=== PATIENT | male | born 1965 | race Two or more races ===

== ENCOUNTER 2021-03-08 17:37 | Inpatient (IN) | payer OTHER ==
[2021-03-08] MEDS ORDERED: DEXAMETHASONE SOD PHOSPHATE 4 MG/1 ML VIAL IVPUSH ONE (18:04)
[2021-03-08] MEDS ORDERED: ACETAMINOPHEN 1000 MG/100 ML VIAL IVPB ONE (18:05)
[2021-03-08] MEDS ORDERED: ACETAMINOPHEN INJECTION 100 ML IVPB ONE (18:38)
[2021-03-08] MEDS ORDERED: DEXAMETHASONE SOD PHOSPHATE 10 MG/1 ML VIAL ONE ×2 (18:38→18:41)
[2021-03-08 20:00] LABS: VENOUS BASE EXCESS 1.1 mmol/L (-2-2); VENOUS O2 SATURATION 49.3 % (70-80); VENOUS PCO2 44.2 mmHg (38-52); VENOUS PH 7.394 (7.310-7.410)
[2021-03-08 20:02] LABS: BASO % 0.3 % (0-2.0); EOS % 0.1 % (0-4.5); HEMATOCRIT 40.9 % (35.4-49); HEMOGLOBIN 14.3 GM/dL (11.7-16.9); LYMPH % 14.5 % (8-40); MCH 30.4 pg (25.7-33.7); MCHC 34.8 g/dl (32.0-35.9); MEAN CELL VOLUME 87.4 fl (80-96); MEAN PLT VOLUME 9.4 fl (7.5-11.1); MONO % 9.4 % (3.8-10.2); NEUT % 75.7 % (42.8-82.8); PLATELET COUNT 250 10^3/uL (134-434); RBC 4.68 M/mm3 (4.00-5.60); WHITE BLOOD COUNT 7.4 K/mm3 (4.0-10.0)
[2021-03-08 20:07] LABS: INR 1.05 (0.83-1.09); PROTHROMBIN TIME (PATIENT) 12.7 SEC (9.7-13.0)
[2021-03-08 20:10] LABS: ACTIVATED PTT 35.4 SECONDS (25.2-36.5)
[2021-03-08 20:20] LABS: CHLORIDE 103 mmol/L (98-107); SODIUM 138 mmol/L (136-145)
[2021-03-08 20:22] LABS: CALCIUM 8.4 mg/dL (8.5-10.1)
[2021-03-08 20:23] LABS: ANION GAP 8 MMOL/L (8-16); BLOOD UREA NITROGEN 29.3 mg/dL (7-18); CO2 26 mmol/L (21-32); GLUCOSE,RANDOM 86 mg/dL (74-106)
[2021-03-08 20:25] LABS: BILIRUBIN,DIRECT 0.4 mg/dL (0.0-0.2)
[2021-03-08 20:26] LABS: CREATININE 1.3 mg/dL (0.55-1.3); SGOT/AST 120 U/L (15-37); SGPT/ALT 159 U/L (13-61)
[2021-03-08 20:27] LABS: BILIRUBIN,TOTAL 1.1 mg/dL (0.2-1); TOT PROT 7.2 g/dl (6.4-8.2)
[2021-03-08 20:29] LABS: ALK PHOS 186 U/L (45-117)
[2021-03-08 20:38] LABS: LDH 675 U/L (87-246)
[2021-03-09] MEDS ORDERED: ACETAMINOPHEN 325 MG TABLET (FP) PO PRN (00:57)
[2021-03-09] MEDS ORDERED: ALBUTEROL SO4 HFA INHALER IH PRN (01:16)
[2021-03-09 07:49] LABS: HEMOGLOBIN 13.4 GM/dL (11.7-16.9); MCH 30.1 pg (25.7-33.7); MCHC 34.4 g/dl (32.0-35.9); MEAN CELL VOLUME 87.4 fl (80-96); MEAN PLT VOLUME 8.8 fl (7.5-11.1); PLATELET COUNT 278 10^3/uL (134-434); RBC 4.46 M/mm3 (4.00-5.60); RDW 13.1 % (11.9-15.9); WHITE BLOOD COUNT 6.7 K/mm3 (4.0-10.0)
[2021-03-09 08:07] LABS: ALBUMIN 2.7 g/dl (3.4-5.0); BLOOD UREA NITROGEN 29.9 mg/dL (7-18); CALCIUM 8.2 mg/dL (8.5-10.1); MAGNESIUM 2.4 mg/dL (1.8-2.4)
[2021-03-09 08:09] LABS: BILIRUBIN,TOTAL 1.1 mg/dL (0.2-1)
[2021-03-09 08:10] LABS: CREATININE 1.1 mg/dL (0.55-1.3); TOT PROT 6.8 g/dl (6.4-8.2)
[2021-03-09 08:11] LABS: PHOSPHOROUS 4.8 mg/dL (2.5-4.9)
[2021-03-09] MEDS ORDERED: REMDESIVIR 200 MG in SODIUM CHLORIDE 250 ML IVPB ONE (10:00)
[2021-03-09] MEDS: DEXAMETHASONE SOD PHOSPHATE 10 MG/1 ML VIAL IVPUSH SCH (10:11)
[2021-03-09] MEDS: ZINC SULFATE 220 MG CAPSULE (FP) PO SCH (10:11)
[2021-03-09] MEDS: PANTOPRAZOLE 40 MG TABLET PO SCH (10:11)
[2021-03-09] MEDS: ENOXAPARIN NA (PORCINE) 40 MG/0.4 ML DISP.SYRIN SQ SCH (10:12)
[2021-03-09] MEDS: CHOLECALCIFEROL (VIT D3) 1,000 UNIT (25 MCG) TABLET PO SCH (10:12)
[2021-03-09] MEDS: ASCORBIC ACID 500 MG TABLET (FP) PO SCH ×2 (10:12→21:59)
[2021-03-10 08:20] LABS: BASO % 0.3 % (0-2.0); HEMATOCRIT 36.5 % (35.4-49); HEMOGLOBIN 12.6 GM/dL (11.7-16.9); LYMPH % 10.8 % (8-40); MCH 30.2 pg (25.7-33.7); MCHC 34.5 g/dl (32.0-35.9); MEAN CELL VOLUME 87.5 fl (80-96); MEAN PLT VOLUME 8.9 fl (7.5-11.1); MONO % 9.9 % (3.8-10.2); PLATELET COUNT 299 10^3/uL (134-434); RBC 4.17 M/mm3 (4.00-5.60); WHITE BLOOD COUNT 13.4 K/mm3 (4.0-10.0)
[2021-03-10 08:44] LABS: BLOOD UREA NITROGEN 34.6 mg/dL (7-18); CALCIUM 8.2 mg/dL (8.5-10.1)
[2021-03-10 08:45] LABS: ALBUMIN 2.6 g/dl (3.4-5.0)
[2021-03-10 08:48] LABS: CREATININE 1.1 mg/dL (0.55-1.3)
[2021-03-10 08:49] LABS: BILIRUBIN,TOTAL 0.9 mg/dL (0.2-1); TOT PROT 6.3 g/dl (6.4-8.2)
[2021-03-10] MEDS ORDERED: PT OWN MED DRAWER 7, Y5N ONE (10:39)
[2021-03-10] MEDS: DEXAMETHASONE SOD PHOSPHATE 10 MG/1 ML VIAL IVPUSH SCH (10:52)
[2021-03-10] MEDS: ASCORBIC ACID 500 MG TABLET (FP) PO SCH ×2 (10:52→21:13)
[2021-03-10] MEDS: ZINC SULFATE 220 MG CAPSULE (FP) PO SCH (10:52)
[2021-03-10] MEDS: CHOLECALCIFEROL (VIT D3) 1,000 UNIT (25 MCG) TABLET PO SCH (10:53)
[2021-03-10] MEDS: ENOXAPARIN NA (PORCINE) 40 MG/0.4 ML DISP.SYRIN SQ SCH (10:53)
[2021-03-10] MEDS: PANTOPRAZOLE 40 MG TABLET PO SCH (10:53)
[2021-03-10] MEDS: REMDESIVIR 100 MG in SODIUM CHLORIDE 250 ML IVPB SCH (10:53)
[2021-03-11 09:27] LABS: HEMATOCRIT 35.9 % (35.4-49); HEMOGLOBIN 12.4 GM/dL (11.7-16.9); MCH 30.2 pg (25.7-33.7); MCHC 34.6 g/dl (32.0-35.9); MEAN CELL VOLUME 87.4 fl (80-96); MEAN PLT VOLUME 8.7 fl (7.5-11.1); PLATELET COUNT 347 10^3/uL (134-434); RDW 12.8 % (11.9-15.9); WHITE BLOOD COUNT 14.3 K/mm3 (4.0-10.0)
[2021-03-11] MEDS: REMDESIVIR 100 MG in SODIUM CHLORIDE 250 ML IVPB SCH (10:05)
[2021-03-11 10:06] LABS: BLOOD UREA NITROGEN 28.7 mg/dL (7-18)
[2021-03-11 10:07] LABS: ALBUMIN 2.6 g/dl (3.4-5.0); CALCIUM 8.2 mg/dL (8.5-10.1); CREATININE 0.9 mg/dL (0.55-1.3); PHOSPHOROUS 2.6 mg/dL (2.5-4.9); TOT PROT 6.4 g/dl (6.4-8.2)
[2021-03-11 10:08] LABS: MAGNESIUM 2.5 mg/dL (1.8-2.4)
[2021-03-11] MEDS ORDERED: PT OWN MED DRAWER 7, Y5N ONE ×2 (10:09→11:38)
[2021-03-11] MEDS: ZINC SULFATE 220 MG CAPSULE (FP) PO SCH (10:13)
[2021-03-11] MEDS: ASCORBIC ACID 500 MG TABLET (FP) PO SCH ×2 (10:13→21:45)
[2021-03-11] MEDS: PANTOPRAZOLE 40 MG TABLET PO SCH (10:13)
[2021-03-11] MEDS: CHOLECALCIFEROL (VIT D3) 1,000 UNIT (25 MCG) TABLET PO SCH (10:13)
[2021-03-11] MEDS: DEXAMETHASONE SOD PHOSPHATE 10 MG/1 ML VIAL IVPUSH SCH (10:13)
[2021-03-11] MEDS: guaiFENesin 200 MG/10 ML 10 ML UNIT-DOSE CUPS PO PRN ×2 (10:13→21:45)
[2021-03-11] MEDS: ENOXAPARIN NA (PORCINE) 40 MG/0.4 ML DISP.SYRIN SQ SCH (10:13)
[2021-03-11 10:17] LABS: ERYTHROCYTE SEDIMENTATION RATE 66 mm/hr (0-20)
[2021-03-11] MEDS: ALBUTEROL SO4 HFA INHALER IH SCH ×3 (11:42→20:22)
[2021-03-11] MEDS: BUDESONIDE/FORMETEROL FUMARATE 160/4.5 mcg INHALER IH SCH ×2 (11:42→21:45)
[2021-03-12] MEDS: ALBUTEROL SO4 HFA INHALER IH SCH ×4 (08:00→20:32)
[2021-03-12 09:51] LABS: HEMATOCRIT 35.5 % (35.4-49); HEMOGLOBIN 12.1 GM/dL (11.7-16.9); MCH 29.5 pg (25.7-33.7); MCHC 34.2 g/dl (32.0-35.9); MEAN CELL VOLUME 86.4 fl (80-96); MEAN PLT VOLUME 8.7 fl (7.5-11.1); PLATELET COUNT 356 10^3/uL (134-434); WHITE BLOOD COUNT 16.8 K/mm3 (4.0-10.0)
[2021-03-12 10:12] LABS: BLOOD UREA NITROGEN 24.6 mg/dL (7-18)
[2021-03-12 10:13] LABS: ALBUMIN 2.7 g/dl (3.4-5.0); CALCIUM 8.2 mg/dL (8.5-10.1); MAGNESIUM 2.1 mg/dL (1.8-2.4)
[2021-03-12 10:16] LABS: CREATININE 1.1 mg/dL (0.55-1.3); PHOSPHOROUS 2.3 mg/dL (2.5-4.9)
[2021-03-12 10:17] LABS: BILIRUBIN,TOTAL 1.4 mg/dL (0.2-1); TOT PROT 6.4 g/dl (6.4-8.2)
[2021-03-12] MEDS ORDERED: PT OWN MED DRAWER 7, Y5N ONE (10:22)
[2021-03-12] MEDS: ZINC SULFATE 220 MG CAPSULE (FP) PO SCH (10:26)
[2021-03-12] MEDS: PANTOPRAZOLE 40 MG TABLET PO SCH (10:26)
[2021-03-12] MEDS: ASCORBIC ACID 500 MG TABLET (FP) PO SCH ×3 (10:27→22:22)
[2021-03-12] MEDS: CHOLECALCIFEROL (VIT D3) 1,000 UNIT (25 MCG) TABLET PO SCH (10:27)
[2021-03-12] MEDS: DEXAMETHASONE SOD PHOSPHATE 10 MG/1 ML VIAL IVPUSH SCH (10:28)
[2021-03-12] MEDS: BUDESONIDE/FORMETEROL FUMARATE 160/4.5 mcg INHALER IH SCH ×3 (10:28→22:22)
[2021-03-12] MEDS: REMDESIVIR 100 MG in SODIUM CHLORIDE 250 ML IVPB SCH (10:28)
[2021-03-12] MEDS: ENOXAPARIN NA (PORCINE) 40 MG/0.4 ML DISP.SYRIN SQ SCH (10:30)
[2021-03-12] MEDS ORDERED: BARICITINIB 2 MG TABLET PO SCH (11:00)
[2021-03-12] MEDS ORDERED: ACETAMINOPHEN 1000 MG/100 ML VIAL IVPB PRN (11:21)
[2021-03-12] MEDS ORDERED: ACETAMINOPHEN 325 MG TABLET (FP) PO PRN (21:57)
[2021-03-13 07:25] LABS: HEMATOCRIT 39.8 % (35.4-49); HEMOGLOBIN 13.3 GM/dL (11.7-16.9); MCH 29.7 pg (25.7-33.7); MCHC 33.3 g/dl (32.0-35.9); MEAN CELL VOLUME 88.9 fl (80-96); MEAN PLT VOLUME 9.6 fl (7.5-11.1); PLATELET COUNT 394 10^3/uL (134-434); RBC 4.47 M/mm3 (4.00-5.60); RDW 13.2 % (11.9-15.9); WHITE BLOOD COUNT 19.4 K/mm3 (4.0-10.0)
[2021-03-13 08:09] LABS: CALCIUM 8.6 mg/dL (8.5-10.1)
[2021-03-13 08:10] LABS: ALBUMIN 2.8 g/dl (3.4-5.0); MAGNESIUM 2.4 mg/dL (1.8-2.4)
[2021-03-13 08:13] LABS: PHOSPHOROUS 3.2 mg/dL (2.5-4.9)
[2021-03-13 08:14] LABS: BILIRUBIN,TOTAL 1.2 mg/dL (0.2-1)
[2021-03-13 08:15] LABS: TOT PROT 6.9 g/dl (6.4-8.2)
[2021-03-13] MEDS ORDERED: PT OWN MED DRAWER 7, Y5N ONE ×2 (09:08→09:57)
[2021-03-13] MEDS: ALBUTEROL SO4 HFA INHALER IH SCH ×4 (09:11→20:21)
[2021-03-13] MEDS ORDERED: ENOXAPARIN NA (PORCINE) 40 MG/0.4 ML DISP.SYRIN SQ SCH (10:00)
[2021-03-13] MEDS ORDERED: REMDESIVIR 100 MG in SODIUM CHLORIDE 250 ML IVPB SCH (10:00)
[2021-03-13] MEDS: DEXAMETHASONE SOD PHOSPHATE 10 MG/1 ML VIAL IVPUSH SCH (10:12)
[2021-03-13] MEDS: ASCORBIC ACID 500 MG TABLET (FP) PO SCH ×2 (10:13→23:13)
[2021-03-13] MEDS: BARICITINIB 2 MG TABLET PO SCH (10:13)
[2021-03-13] MEDS: PANTOPRAZOLE 40 MG TABLET PO SCH (10:13)
[2021-03-13] MEDS: ZINC SULFATE 220 MG CAPSULE (FP) PO SCH (10:13)
[2021-03-13] MEDS: CHOLECALCIFEROL (VIT D3) 1,000 UNIT (25 MCG) TABLET PO SCH (10:13)
[2021-03-13] MEDS: BUDESONIDE/FORMETEROL FUMARATE 160/4.5 mcg INHALER IH SCH ×2 (10:35→23:13)
[2021-03-13] MEDS: ENOXAPARIN NA (PORCINE) 40 MG/0.4 ML DISP.SYRIN SQ SCH (23:15)
[2021-03-14 07:38] LABS: HEMATOCRIT 35.7 % (35.4-49); HEMOGLOBIN 12.1 GM/dL (11.7-16.9); MCH 29.5 pg (25.7-33.7); MCHC 33.9 g/dl (32.0-35.9); MEAN CELL VOLUME 87.2 fl (80-96); MEAN PLT VOLUME 8.9 fl (7.5-11.1); PLATELET COUNT 408 10^3/uL (134-434); RBC 4.09 M/mm3 (4.00-5.60); RDW 13.1 % (11.9-15.9)
[2021-03-14] MEDS: ALBUTEROL SO4 HFA INHALER IH SCH ×4 (07:42→20:00)
[2021-03-14 07:44] LABS: CALCIUM 8.8 mg/dL (8.5-10.1)
[2021-03-14 07:47] LABS: ALBUMIN 2.5 g/dl (3.4-5.0); MAGNESIUM 2.5 mg/dL (1.8-2.4)
[2021-03-14 07:51] LABS: BILIRUBIN,TOTAL 1.2 mg/dL (0.2-1); PHOSPHOROUS 3.4 mg/dL (2.5-4.9)
[2021-03-14 07:52] LABS: TOT PROT 6.4 g/dl (6.4-8.2)
[2021-03-14] MEDS: DEXAMETHASONE SOD PHOSPHATE 10 MG/1 ML VIAL IVPUSH SCH (10:27)
[2021-03-14] MEDS: BUDESONIDE/FORMETEROL FUMARATE 160/4.5 mcg INHALER IH SCH ×2 (10:29→22:07)
[2021-03-14] MEDS: ENOXAPARIN NA (PORCINE) 40 MG/0.4 ML DISP.SYRIN SQ SCH ×2 (10:29→22:01)
[2021-03-14] MEDS: ASCORBIC ACID 500 MG TABLET (FP) PO SCH ×2 (10:29→22:01)
[2021-03-14] MEDS: CHOLECALCIFEROL (VIT D3) 1,000 UNIT (25 MCG) TABLET PO SCH (10:29)
[2021-03-14] MEDS: BARICITINIB 2 MG TABLET PO SCH (10:29)
[2021-03-14] MEDS: PANTOPRAZOLE 40 MG TABLET PO SCH (10:29)
[2021-03-14] MEDS: ZINC SULFATE 220 MG CAPSULE (FP) PO SCH (10:29)
[2021-03-14 11:44] LABS: HIV INTERPRETATION NEGATIVE (NEGATIVE)
[2021-03-14] MEDS: guaiFENesin 200 MG/10 ML 10 ML UNIT-DOSE CUPS PO PRN (22:01)
[2021-03-15 07:55] LABS: BASO % 0.4 % (0-2.0); EOS % 0.3 % (0-4.5); HEMATOCRIT 34.3 % (35.4-49); HEMOGLOBIN 11.5 GM/dL (11.7-16.9); LYMPH % 6.9 % (8-40); MCH 29.6 pg (25.7-33.7); MCHC 33.5 g/dl (32.0-35.9); MEAN CELL VOLUME 88.3 fl (80-96); MEAN PLT VOLUME 9.5 fl (7.5-11.1); MONO % 3.8 % (3.8-10.2); NEUT % 88.6 % (42.8-82.8); PLATELET COUNT 448 10^3/uL (134-434); RBC 3.88 M/mm3 (4.00-5.60); WHITE BLOOD COUNT 14.2 K/mm3 (4.0-10.0)
[2021-03-15 08:21] LABS: ALBUMIN 2.2 g/dl (3.4-5.0); BLOOD UREA NITROGEN 32.2 mg/dL (7-18); CALCIUM 8.2 mg/dL (8.5-10.1); MAGNESIUM 2.5 mg/dL (1.8-2.4)
[2021-03-15 08:23] LABS: BILIRUBIN,TOTAL 0.9 mg/dL (0.2-1); TOT PROT 5.9 g/dl (6.4-8.2)
[2021-03-15 09:04] LABS: ERYTHROCYTE SEDIMENTATION RATE 82 mm/hr (0-20)
[2021-03-15] MEDS ORDERED: PT OWN MED DRAWER 7, Y5N ONE (09:55)
[2021-03-15] MEDS: PANTOPRAZOLE 40 MG TABLET PO SCH (09:59)
[2021-03-15] MEDS: ZINC SULFATE 220 MG CAPSULE (FP) PO SCH (09:59)
[2021-03-15] MEDS: CHOLECALCIFEROL (VIT D3) 1,000 UNIT (25 MCG) TABLET PO SCH (09:59)
[2021-03-15] MEDS: ASCORBIC ACID 500 MG TABLET (FP) PO SCH ×2 (09:59→21:46)
[2021-03-15] MEDS: ENOXAPARIN NA (PORCINE) 40 MG/0.4 ML DISP.SYRIN SQ SCH ×2 (10:00→21:46)
[2021-03-15] MEDS: ALBUTEROL SO4 HFA INHALER IH SCH ×4 (10:00→20:20)
[2021-03-15] MEDS: DEXAMETHASONE SOD PHOSPHATE 10 MG/1 ML VIAL IVPUSH SCH (10:00)
[2021-03-15] MEDS: BARICITINIB 2 MG TABLET PO SCH (10:00)
[2021-03-15] MEDS: BUDESONIDE/FORMETEROL FUMARATE 160/4.5 mcg INHALER IH SCH ×2 (10:01→21:46)
[2021-03-16 07:42] LABS: EOS % 0.3 % (0-4.5); HEMATOCRIT 31.6 % (35.4-49); HEMOGLOBIN 10.9 GM/dL (11.7-16.9); LYMPH % 8.4 % (8-40); MCH 30.3 pg (25.7-33.7); MCHC 34.6 g/dl (32.0-35.9); MEAN CELL VOLUME 87.7 fl (80-96); MEAN PLT VOLUME 9.3 fl (7.5-11.1); MONO % 4.7 % (3.8-10.2); NEUT % 85.6 % (42.8-82.8); PLATELET COUNT 449 10^3/uL (134-434); RDW 13.3 % (11.9-15.9); WHITE BLOOD COUNT 13.9 K/mm3 (4.0-10.0)
[2021-03-16 07:58] LABS: ALBUMIN 2.3 g/dl (3.4-5.0); BLOOD UREA NITROGEN 29.3 mg/dL (7-18); CALCIUM 8.4 mg/dL (8.5-10.1); MAGNESIUM 2.4 mg/dL (1.8-2.4)
[2021-03-16 08:02] LABS: CREATININE 0.9 mg/dL (0.55-1.3); PHOSPHOROUS 3.6 mg/dL (2.5-4.9)
[2021-03-16 08:03] LABS: BILIRUBIN,TOTAL 0.6 mg/dL (0.2-1); TOT PROT 5.9 g/dl (6.4-8.2)
[2021-03-16] MEDS: ALBUTEROL SO4 HFA INHALER IH SCH ×4 (08:40→20:00)
[2021-03-16] MEDS ORDERED: PT OWN MED DRAWER 7, Y5N ONE (09:31)
[2021-03-16 09:42] LABS: ERYTHROCYTE SEDIMENTATION RATE 72 mm/hr (0-20)
[2021-03-16] MEDS: BARICITINIB 2 MG TABLET PO SCH (09:46)
[2021-03-16] MEDS: MULTIVITAMINS (DAILY MVI) TABLET (FP) PO SCH (09:47)
[2021-03-16] MEDS: PANTOPRAZOLE 40 MG TABLET PO SCH (09:47)
[2021-03-16] MEDS: BUDESONIDE/FORMETEROL FUMARATE 160/4.5 mcg INHALER IH SCH ×2 (09:47→22:23)
[2021-03-16] MEDS: ZINC SULFATE 220 MG CAPSULE (FP) PO SCH (09:47)
[2021-03-16] MEDS: DEXAMETHASONE SOD PHOSPHATE 10 MG/1 ML VIAL IVPUSH SCH (09:47)
[2021-03-16] MEDS: ENOXAPARIN NA (PORCINE) 40 MG/0.4 ML DISP.SYRIN SQ SCH ×2 (09:47→22:09)
[2021-03-16] MEDS: ASCORBIC ACID 500 MG TABLET (FP) PO SCH ×2 (09:47→22:09)
[2021-03-16] MEDS: CHOLECALCIFEROL (VIT D3) 1,000 UNIT (25 MCG) TABLET PO SCH (09:47)
[2021-03-17 08:07] LABS: BASO % 0.2 % (0-2.0); EOS % 0.3 % (0-4.5); HEMATOCRIT 32.1 % (35.4-49); HEMOGLOBIN 10.8 GM/dL (11.7-16.9); LYMPH % 8.1 % (8-40); MCH 29.7 pg (25.7-33.7); MCHC 33.7 g/dl (32.0-35.9); MEAN CELL VOLUME 88.1 fl (80-96); MEAN PLT VOLUME 9.2 fl (7.5-11.1); MONO % 5.2 % (3.8-10.2); NEUT % 86.2 % (42.8-82.8); PLATELET COUNT 492 10^3/uL (134-434); RBC 3.65 M/mm3 (4.00-5.60); RDW 12.9 % (11.9-15.9); WHITE BLOOD COUNT 16.2 K/mm3 (4.0-10.0)
[2021-03-17 08:29] LABS: ALBUMIN 2.2 g/dl (3.4-5.0); BLOOD UREA NITROGEN 24.7 mg/dL (7-18); CALCIUM 8.3 mg/dL (8.5-10.1); MAGNESIUM 2.5 mg/dL (1.8-2.4)
[2021-03-17 08:30] LABS: BILIRUBIN,TOTAL 0.7 mg/dL (0.2-1)
[2021-03-17 08:32] LABS: CREATININE 0.9 mg/dL (0.55-1.3)
[2021-03-17 08:33] LABS: PHOSPHOROUS 3.2 mg/dL (2.5-4.9)
[2021-03-17] MEDS: ALBUTEROL SO4 HFA INHALER IH SCH ×4 (08:35→20:00)
[2021-03-17] MEDS: BARICITINIB 2 MG TABLET PO SCH (10:12)
[2021-03-17] MEDS: CHOLECALCIFEROL (VIT D3) 1,000 UNIT (25 MCG) TABLET PO SCH (10:13)
[2021-03-17] MEDS: MULTIVITAMINS (DAILY MVI) TABLET (FP) PO SCH (10:13)
[2021-03-17] MEDS: ASCORBIC ACID 500 MG TABLET (FP) PO SCH ×2 (10:13→22:21)
[2021-03-17] MEDS: ZINC SULFATE 220 MG CAPSULE (FP) PO SCH (10:13)
[2021-03-17] MEDS: ENOXAPARIN NA (PORCINE) 40 MG/0.4 ML DISP.SYRIN SQ SCH ×2 (10:13→22:21)
[2021-03-17] MEDS: DEXAMETHASONE SOD PHOSPHATE 10 MG/1 ML VIAL IVPUSH SCH (10:13)
[2021-03-17] MEDS: PANTOPRAZOLE 40 MG TABLET PO SCH (10:14)
[2021-03-17] MEDS: BUDESONIDE/FORMETEROL FUMARATE 160/4.5 mcg INHALER IH SCH ×2 (10:14→22:32)
[2021-03-18] MEDS: ALBUTEROL SO4 HFA INHALER IH SCH ×4 (09:42→20:00)
[2021-03-18] MEDS ORDERED: PT OWN MED DRAWER 7, Y5N ONE (09:46)
[2021-03-18] MEDS: DEXAMETHASONE SOD PHOSPHATE 10 MG/1 ML VIAL IVPUSH SCH (09:59)
[2021-03-18] MEDS: ENOXAPARIN NA (PORCINE) 40 MG/0.4 ML DISP.SYRIN SQ SCH ×2 (09:59→21:37)
[2021-03-18] MEDS: BARICITINIB 2 MG TABLET PO SCH (09:59)
[2021-03-18] MEDS: PANTOPRAZOLE 40 MG TABLET PO SCH (10:00)
[2021-03-18] MEDS: BUDESONIDE/FORMETEROL FUMARATE 160/4.5 mcg INHALER IH SCH ×2 (10:00→21:38)
[2021-03-18] MEDS: ASCORBIC ACID 500 MG TABLET (FP) PO SCH ×2 (10:00→21:37)
[2021-03-18] MEDS: CHOLECALCIFEROL (VIT D3) 1,000 UNIT (25 MCG) TABLET PO SCH (10:00)
[2021-03-18] MEDS: ZINC SULFATE 220 MG CAPSULE (FP) PO SCH (10:00)
[2021-03-18] MEDS: MULTIVITAMINS (DAILY MVI) TABLET (FP) PO SCH (10:00)
[2021-03-18] MEDS: guaiFENesin 200 MG/10 ML 10 ML UNIT-DOSE CUPS PO PRN (21:52)
[2021-03-19 08:33] LABS: HEMATOCRIT 35.3 % (35.4-49); HEMOGLOBIN 11.7 GM/dL (11.7-16.9); MCH 29.3 pg (25.7-33.7); MCHC 33.1 g/dl (32.0-35.9); MEAN CELL VOLUME 88.4 fl (80-96); MEAN PLT VOLUME 9.1 fl (7.5-11.1); PLATELET COUNT 444 10^3/uL (134-434); RBC 3.99 M/mm3 (4.00-5.60); WHITE BLOOD COUNT 22.5 K/mm3 (4.0-10.0)
[2021-03-19 08:53] LABS: ALBUMIN 2.4 g/dl (3.4-5.0); BLOOD UREA NITROGEN 23.3 mg/dL (7-18); CALCIUM 8.9 mg/dL (8.5-10.1); MAGNESIUM 2.5 mg/dL (1.8-2.4)
[2021-03-19 08:56] LABS: CREATININE 0.9 mg/dL (0.55-1.3); PHOSPHOROUS 3.1 mg/dL (2.5-4.9)
[2021-03-19 08:58] LABS: BILIRUBIN,TOTAL 0.9 mg/dL (0.2-1); TOT PROT 6.4 g/dl (6.4-8.2)
[2021-03-19] MEDS: ALBUTEROL SO4 HFA INHALER IH SCH ×4 (09:03→20:00)
[2021-03-19] MEDS ORDERED: PT OWN MED DRAWER 7, Y5N ONE (11:00)
[2021-03-19] MEDS: BARICITINIB 2 MG TABLET PO SCH (11:11)
[2021-03-19] MEDS: PANTOPRAZOLE 40 MG TABLET PO SCH (11:12)
[2021-03-19] MEDS: DEXAMETHASONE SOD PHOSPHATE 10 MG/1 ML VIAL IVPUSH SCH (11:12)
[2021-03-19] MEDS: MULTIVITAMINS (DAILY MVI) TABLET (FP) PO SCH (11:12)
[2021-03-19] MEDS: CHOLECALCIFEROL (VIT D3) 1,000 UNIT (25 MCG) TABLET PO SCH (11:12)
[2021-03-19] MEDS: ASCORBIC ACID 500 MG TABLET (FP) PO SCH ×2 (11:12→21:38)
[2021-03-19] MEDS: ZINC SULFATE 220 MG CAPSULE (FP) PO SCH (11:12)
[2021-03-19] MEDS: ENOXAPARIN NA (PORCINE) 40 MG/0.4 ML DISP.SYRIN SQ SCH ×2 (11:12→21:37)
[2021-03-19] MEDS: BUDESONIDE/FORMETEROL FUMARATE 160/4.5 mcg INHALER IH SCH ×2 (11:13→21:38)
[2021-03-19 11:43] LABS: ANISOCYTOSIS 0; MACROCYTOSIS 0; PLATELET ESTIMATE NORMAL
[2021-03-20 08:04] LABS: MCH 29.4 pg (25.7-33.7); MCHC 33.5 g/dl (32.0-35.9); PLATELET COUNT 412 10^3/uL (134-434); RBC 3.75 M/mm3 (4.00-5.60); RDW 13.2 % (11.9-15.9); WHITE BLOOD COUNT 19.8 K/mm3 (4.0-10.0)
[2021-03-20 08:45] LABS: CALCIUM 8.9 mg/dL (8.5-10.1)
[2021-03-20 08:46] LABS: ALBUMIN 2.3 g/dl (3.4-5.0); BLOOD UREA NITROGEN 24.7 mg/dL (7-18)
[2021-03-20 08:47] LABS: BILIRUBIN,TOTAL 0.8 mg/dL (0.2-1); MAGNESIUM 2.3 mg/dL (1.8-2.4)
[2021-03-20 08:49] LABS: CREATININE 0.9 mg/dL (0.55-1.3); TOT PROT 6.3 g/dl (6.4-8.2)
[2021-03-20 08:51] LABS: PHOSPHOROUS 3.3 mg/dL (2.5-4.9)
[2021-03-20] MEDS: DEXAMETHASONE SOD PHOSPHATE 10 MG/1 ML VIAL IVPUSH SCH (09:15)
[2021-03-20] MEDS: PANTOPRAZOLE 40 MG TABLET PO SCH (09:16)
[2021-03-20] MEDS: ZINC SULFATE 220 MG CAPSULE (FP) PO SCH (09:16)
[2021-03-20] MEDS: MULTIVITAMINS (DAILY MVI) TABLET (FP) PO SCH (09:16)
[2021-03-20] MEDS: CHOLECALCIFEROL (VIT D3) 1,000 UNIT (25 MCG) TABLET PO SCH (09:16)
[2021-03-20] MEDS: ENOXAPARIN NA (PORCINE) 40 MG/0.4 ML DISP.SYRIN SQ SCH ×2 (09:16→22:08)
[2021-03-20] MEDS: ASCORBIC ACID 500 MG TABLET (FP) PO SCH ×2 (09:16→22:08)
[2021-03-20] MEDS: BUDESONIDE/FORMETEROL FUMARATE 160/4.5 mcg INHALER IH SCH ×2 (09:17→22:23)
[2021-03-20] MEDS: BARICITINIB 2 MG TABLET PO SCH (09:21)
[2021-03-20] MEDS: ALBUTEROL SO4 HFA INHALER IH SCH ×4 (09:21→21:00)
[2021-03-20 09:36] LABS: ANISOCYTOSIS 2+; MACROCYTOSIS 0; PLATELET ESTIMATE NORMAL
[2021-03-21] MEDS: PROPOFOL 1,000,000 MCG/100 ML VIAL IVPB SCH ×3 (05:50→17:15)
[2021-03-21] MEDS: FENTANYL NS IVPB 500 MCG/100 ML BAG IVPB SCH ×5 (05:50→21:42)
[2021-03-21] MEDS ORDERED: MIDAZOLAM IN 0.9 % SOD.CHLORID 1 MG/1 ML PLAST..BAG ONE (06:19)
[2021-03-21] MEDS ORDERED: ACETAMINOPHEN INJECTION 100 ML IVPB ONE (06:23)
[2021-03-21] MEDS ORDERED: ACETAMINOPHEN 1000 MG/100 ML VIAL IVPB ONE (06:25)
[2021-03-21] MEDS ORDERED: VECURONIUM BROMIDE 20 MG/20 ML VIAL ONE (06:33)
[2021-03-21] MEDS ORDERED: ROCURONIUM BROMIDE 100 MG/10 ML VIAL IV ONE (06:33)
[2021-03-21] MEDS ORDERED: ROCURONIUM BROMIDE 50 MG/5 ML VIAL IVPUSH ONE (06:33)
[2021-03-21] MEDS ORDERED: ROCURONIUM BROMIDE 50 MG/5 ML VIAL IV ONE (06:33)
[2021-03-21] MEDS ORDERED: ROCURONIUM BROMIDE 100 MG/10 ML VIAL ONE (06:35)
[2021-03-21] MEDS: MIDAZOLAM IN 0.9 % SOD.CHLORID 100 MG/100 ML PLAST..BAG IVPB SCH ×2 (06:41→17:14)
[2021-03-21] MEDS ORDERED: VECURONIUM BROMIDE 100 MG/100 ML BAG IVPB SCH (06:45)
[2021-03-21] MEDS ORDERED: dilTIAZem HCL 50 MG/10 ML - 10 ML VIAL IVPUSH ONE ×2 (06:54→08:17)
[2021-03-21 07:00] LABS: BASO % 0.7 % (0-2.0); EOS % 0.4 % (0-4.5); HEMATOCRIT 36.3 % (35.4-49); HEMOGLOBIN 11.9 GM/dL (11.7-16.9); LYMPH % 8.3 % (8-40); MCH 29.2 pg (25.7-33.7); MCHC 32.8 g/dl (32.0-35.9); MEAN CELL VOLUME 88.9 fl (80-96); MEAN PLT VOLUME 9.3 fl (7.5-11.1); MONO % 4.3 % (3.8-10.2); NEUT % 86.3 % (42.8-82.8); PLATELET COUNT 535 10^3/uL (134-434); RBC 4.09 M/mm3 (4.00-5.60); RDW 13.6 % (11.9-15.9)
[2021-03-21 07:05] LABS: WHITE BLOOD COUNT 33.3 K/mm3 (4.0-10.0)
[2021-03-21 07:28] LABS: ALBUMIN 2.6 g/dl (3.4-5.0)
[2021-03-21 07:30] LABS: BLOOD UREA NITROGEN 25.2 mg/dL (7-18); CREATININE 0.9 mg/dL (0.55-1.3)
[2021-03-21 07:31] LABS: CALCIUM 8.6 mg/dL (8.5-10.1); PHOSPHOROUS 3.9 mg/dL (2.5-4.9)
[2021-03-21 07:32] LABS: MAGNESIUM 2.2 mg/dL (1.8-2.4); TOT PROT 6.9 g/dl (6.4-8.2)
[2021-03-21 08:16] LABS: ARTERIAL BLD GAS O2 SATURATION 97.3 % (95-98); ARTERIAL BLOOD GAS BASE EXCESS -3.5 mmol/L (-2-2); ARTERIAL BLOOD GAS PO2 130.1 mmHg (80-100)
[2021-03-21 08:19] LABS: ALLENS TEST POSITIVE; ARTERIAL BLOOD GAS pH 7.116 (7.350-7.450)
[2021-03-21 08:20] LABS: VENT RATE 16
[2021-03-21] MEDS: LACTATED RINGERS SOLUTION 1,000 ML/1,000 ML INFUS.BAG IV SCH ×2 (09:15→22:00)
[2021-03-21 09:37] LABS: ANISOCYTOSIS 0; MACROCYTOSIS 0; PLATELET ESTIMATE INCREASED
[2021-03-21] MEDS ORDERED: VASOPRESSIN 40 UNITS/100 ML BAG ONE (09:51)
[2021-03-21] MEDS ORDERED: PT OWN MED DRAWER 7, Y5N ONE ×2 (10:04→15:13)
[2021-03-21] MEDS: DEXAMETHASONE SOD PHOSPHATE 10 MG/1 ML VIAL IVPUSH SCH (10:08)
[2021-03-21] MEDS: PANTOPRAZOLE SODIUM 40 MG VIAL IVPUSH SCH (10:08)
[2021-03-21] MEDS: ENOXAPARIN NA (PORCINE) 40 MG/0.4 ML DISP.SYRIN SQ SCH ×2 (10:08→21:42)
[2021-03-21] MEDS: BUDESONIDE/FORMETEROL FUMARATE 160/4.5 mcg INHALER IH SCH (10:10)
[2021-03-21] MEDS: VECURONIUM BROMIDE 100 MG/100 ML BAG IVPB SCH ×2 (10:15→11:26)
[2021-03-21] MEDS ORDERED: LACTATED RINGERS SOLUTION 1,000 ML/1,000 ML INFUS.BAG IV STA (10:29)
[2021-03-21] MEDS ORDERED: VASOPRESSIN 40 UNITS/100 ML BAG IV SCH (10:30)
[2021-03-21] MEDS: ZINC SULFATE 220 MG CAPSULE (FP) PO SCH (11:03)
[2021-03-21] MEDS: ASCORBIC ACID 500 MG TABLET (FP) PO SCH (11:03)
[2021-03-21] MEDS: CHOLECALCIFEROL (VIT D3) 1,000 UNIT (25 MCG) TABLET PO SCH (11:03)
[2021-03-21] MEDS: MULTIVITAMINS (DAILY MVI) TABLET (FP) PO SCH (11:03)
[2021-03-21] MEDS: ALBUTEROL SO4 HFA INHALER IH SCH ×2 (11:27→15:15)
[2021-03-21] MEDS: MUPIROCIN 2% TOPICAL OINTMENT FOR DECOLONIZATION NS SCH ×2 (12:00→21:42)
[2021-03-21] MEDS ORDERED: PIPERACILLIN/TAZOBACTAM 4.5 GM VIAL IVPB ONE ×3 (12:45→19:49)
[2021-03-21] MEDS ORDERED: DEXTROSE 5%-WATER 100 ML IVPB ONE ×3 (12:45→19:49)
[2021-03-21 12:50] LABS: ARTERIAL BLD GAS O2 SATURATION 94.4 % (95-98); ARTERIAL BLOOD GAS PO2 86.2 mmHg (80-100); ARTERIAL BLOOD GAS pH 7.226 (7.350-7.450)
[2021-03-21] MEDS: PIPERACILLIN/TAZOB 4.5 GM 4.5 GM in DEXTROSE 5%-WATER 100 ML IVPB SCH ×2 (12:50→17:14)
[2021-03-21 12:53] LABS: ALLENS TEST POSITIVE; VENT RATE 26
[2021-03-21] MEDS: VANCOMYCIN/WATER BAGS 1,250 MG/250 ML BAG IVPB SCH (13:29)
[2021-03-21] MEDS: NOREPINEPHRINE D5W PREMIX 16,000 MCG/500 ML BAG IVPB SCH (15:08)
[2021-03-21] MEDS: CHLORHEXIDINE GLUCONATE 4% CLEANSER FOR DECOLONIZATION TP SCH (21:42)
[2021-03-22] MEDS: FENTANYL NS IVPB 500 MCG/100 ML BAG IVPB SCH ×3 (01:07→21:06)
[2021-03-22] MEDS: VANCOMYCIN/WATER BAGS 1,250 MG/250 ML BAG IVPB SCH ×2 (01:07→13:44)
[2021-03-22] MEDS: PIPERACILLIN/TAZOB 4.5 GM 4.5 GM in DEXTROSE 5%-WATER 100 ML IVPB SCH ×3 (01:13→17:18)
[2021-03-22] MEDS ORDERED: fentaNYL CITRATE 250 MCG/5 ML VIAL ONE (06:08)
[2021-03-22] MEDS: PROPOFOL 1,000,000 MCG/100 ML VIAL IVPB SCH ×2 (06:34→20:46)
[2021-03-22] MEDS: MIDAZOLAM IN 0.9 % SOD.CHLORID 100 MG/100 ML PLAST..BAG IVPB SCH ×2 (06:34→21:40)
[2021-03-22 09:34] LABS: CALCIUM 8.7 mg/dL (8.5-10.1)
[2021-03-22 09:35] LABS: BLOOD UREA NITROGEN 21.8 mg/dL (7-18); MAGNESIUM 2.4 mg/dL (1.8-2.4)
[2021-03-22] MEDS ORDERED: PT OWN MED DRAWER 7, Y5N ONE ×2 (09:37→12:09)
[2021-03-22] MEDS ORDERED: PIPERACILLIN/TAZOBACTAM 4.5 GM VIAL IVPB ONE ×2 (09:37→16:55)
[2021-03-22] MEDS ORDERED: DEXTROSE 5%-WATER 100 ML IVPB ONE ×2 (09:37→16:55)
[2021-03-22 09:38] LABS: CREATININE 0.9 mg/dL (0.55-1.3); PHOSPHOROUS 4.8 mg/dL (2.5-4.9)
[2021-03-22 09:39] LABS: BILIRUBIN,TOTAL 0.5 mg/dL (0.2-1); TOT PROT 5.2 g/dl (6.4-8.2)
[2021-03-22 09:42] LABS: ALBUMIN 1.8 g/dl (3.4-5.0)
[2021-03-22] MEDS: LACTATED RINGERS SOLUTION 1,000 ML/1,000 ML INFUS.BAG IV SCH (09:43)
[2021-03-22] MEDS: ENOXAPARIN NA (PORCINE) 40 MG/0.4 ML DISP.SYRIN SQ SCH ×2 (09:45→21:06)
[2021-03-22] MEDS: MUPIROCIN 2% TOPICAL OINTMENT FOR DECOLONIZATION NS SCH ×2 (09:45→21:00)
[2021-03-22] MEDS: PANTOPRAZOLE SODIUM 40 MG VIAL IVPUSH SCH (09:45)
[2021-03-22] MEDS: DEXAMETHASONE SOD PHOSPHATE 10 MG/1 ML VIAL IVPUSH SCH (09:46)
[2021-03-22 10:45] LABS: BASO % 0.2 % (0-2.0); EOS % 0.2 % (0-4.5); LYMPH % 6.3 % (8-40); MCH 29.8 pg (25.7-33.7); MCHC 33.4 g/dl (32.0-35.9); MEAN CELL VOLUME 89.2 fl (80-96); MEAN PLT VOLUME 8.7 fl (7.5-11.1); MONO % 8.2 % (3.8-10.2); NEUT % 85.1 % (42.8-82.8); PLATELET COUNT 331 10^3/uL (134-434); RBC 3.03 M/mm3 (4.00-5.60); RDW 13.7 % (11.9-15.9); WHITE BLOOD COUNT 11.6 K/mm3 (4.0-10.0)
[2021-03-22] MEDS: BARICITINIB 1 MG/10 ML LIQUID NGT SCH (11:11)
[2021-03-22 11:19] LABS: ARTERIAL BLD GAS O2 SATURATION 92.4 % (95-98); ARTERIAL BLOOD GAS pH 7.342 (7.350-7.450)
[2021-03-22 11:21] LABS: ALLENS TEST POSITIVE
[2021-03-22 11:22] LABS: VENT MODE A/C
[2021-03-22 11:23] LABS: VENT RATE 26
[2021-03-22] MEDS: VECURONIUM BROMIDE 100 MG/100 ML BAG IVPB SCH (12:12)
[2021-03-22] MEDS: NOREPINEPHRINE D5W PREMIX 16,000 MCG/500 ML BAG IVPB SCH (16:18)
[2021-03-22] MEDS: CHLORHEXIDINE GLUCONATE 4% CLEANSER FOR DECOLONIZATION TP SCH (21:01)
[2021-03-23] MEDS ORDERED: PT OWN MED DRAWER 7, Y5N ONE ×3 (01:00→12:32)
[2021-03-23] MEDS: VANCOMYCIN/WATER BAGS 1,250 MG/250 ML BAG IVPB SCH ×2 (01:10→12:39)
[2021-03-23] MEDS ORDERED: PIPERACILLIN/TAZOBACTAM 4.5 GM VIAL IVPB ONE ×3 (01:18→16:54)
[2021-03-23] MEDS ORDERED: DEXTROSE 5%-WATER 100 ML IVPB ONE ×3 (01:18→16:54)
[2021-03-23] MEDS: PIPERACILLIN/TAZOB 4.5 GM 4.5 GM in DEXTROSE 5%-WATER 100 ML IVPB SCH ×3 (01:26→17:13)
[2021-03-23] MEDS: FENTANYL NS IVPB 500 MCG/100 ML BAG IVPB SCH ×2 (02:10→20:58)
[2021-03-23] MEDS: PROPOFOL 1,000,000 MCG/100 ML VIAL IVPB SCH ×4 (02:34→20:58)
[2021-03-23 06:30] LABS: BASO % 0.1 % (0-2.0); EOS % 0.6 % (0-4.5); HEMOGLOBIN 9.1 GM/dL (11.7-16.9); LYMPH % 10.2 % (8-40); MCH 30.3 pg (25.7-33.7); MCHC 33.8 g/dl (32.0-35.9); MEAN CELL VOLUME 89.4 fl (80-96); MEAN PLT VOLUME 8.9 fl (7.5-11.1); MONO % 8.3 % (3.8-10.2); NEUT % 80.8 % (42.8-82.8); PLATELET COUNT 340 10^3/uL (134-434); RBC 3.02 M/mm3 (4.00-5.60); RDW 13.4 % (11.9-15.9); WHITE BLOOD COUNT 11.3 K/mm3 (4.0-10.0)
[2021-03-23 07:01] LABS: BLOOD UREA NITROGEN 22.6 mg/dL (7-18); CALCIUM 8.4 mg/dL (8.5-10.1)
[2021-03-23 07:02] LABS: ALBUMIN 1.8 g/dl (3.4-5.0); MAGNESIUM 2.5 mg/dL (1.8-2.4)
[2021-03-23 07:04] LABS: CREATININE 0.9 mg/dL (0.55-1.3)
[2021-03-23 07:05] LABS: PHOSPHOROUS 3.6 mg/dL (2.5-4.9)
[2021-03-23 07:06] LABS: BILIRUBIN,TOTAL 0.4 mg/dL (0.2-1); TOT PROT 5.3 g/dl (6.4-8.2)
[2021-03-23] MEDS: MIDAZOLAM IN 0.9 % SOD.CHLORID 100 MG/100 ML PLAST..BAG IVPB SCH (07:28)
[2021-03-23] MEDS: DEXAMETHASONE SOD PHOSPHATE 10 MG/1 ML VIAL IVPUSH SCH (09:26)
[2021-03-23] MEDS: ENOXAPARIN NA (PORCINE) 40 MG/0.4 ML DISP.SYRIN SQ SCH ×2 (09:28→21:25)
[2021-03-23] MEDS: LACTATED RINGERS SOLUTION 1,000 ML/1,000 ML INFUS.BAG IV SCH (09:28)
[2021-03-23] MEDS: AMINO ACIDS/PROTEIN HYDROLYS 30 ML LIQUID.PKT PO SCH (09:28)
[2021-03-23] MEDS: PANTOPRAZOLE SODIUM 40 MG VIAL IVPUSH SCH (09:30)
[2021-03-23] MEDS: VECURONIUM BROMIDE 100 MG/100 ML BAG IVPB SCH (10:15)
[2021-03-23] MEDS: MUPIROCIN 2% TOPICAL OINTMENT FOR DECOLONIZATION NS SCH ×2 (11:00→21:25)
[2021-03-23] MEDS: BARICITINIB 1 MG/10 ML LIQUID NGT SCH (11:00)
[2021-03-23] MEDS: NOREPINEPHRINE D5W PREMIX 16,000 MCG/500 ML BAG IVPB SCH (17:13)
[2021-03-23] MEDS: CHLORHEXIDINE GLUCONATE 4% CLEANSER FOR DECOLONIZATION TP SCH (21:25)
[2021-03-24] MEDS ORDERED: PT OWN MED DRAWER 7, Y5N ONE ×4 (01:04→12:07)
[2021-03-24] MEDS ORDERED: PIPERACILLIN/TAZOBACTAM 4.5 GM VIAL IVPB ONE ×3 (01:05→16:03)
[2021-03-24] MEDS ORDERED: DEXTROSE 5%-WATER 100 ML IVPB ONE ×3 (01:05→16:04)
[2021-03-24] MEDS: VANCOMYCIN/WATER BAGS 1,250 MG/250 ML BAG IVPB SCH ×2 (01:25→12:08)
[2021-03-24] MEDS: PIPERACILLIN/TAZOB 4.5 GM 4.5 GM in DEXTROSE 5%-WATER 100 ML IVPB SCH ×3 (01:25→16:59)
[2021-03-24] MEDS: LACTATED RINGERS SOLUTION 1,000 ML/1,000 ML INFUS.BAG IV SCH ×2 (02:05→17:44)
[2021-03-24] MEDS: PROPOFOL 1,000,000 MCG/100 ML VIAL IVPB SCH ×5 (02:05→21:11)
[2021-03-24] MEDS: FENTANYL NS IVPB 500 MCG/100 ML BAG IVPB SCH ×5 (02:06→20:39)
[2021-03-24] MEDS: MIDAZOLAM IN 0.9 % SOD.CHLORID 100 MG/100 ML PLAST..BAG IVPB SCH ×4 (02:06→22:54)
[2021-03-24 06:44] LABS: BLOOD UREA NITROGEN 23.5 mg/dL (7-18); CREATININE 0.8 mg/dL (0.55-1.3)
[2021-03-24 06:45] LABS: ALBUMIN 1.8 g/dl (3.4-5.0); BILIRUBIN,TOTAL 0.5 mg/dL (0.2-1); CALCIUM 7.9 mg/dL (8.5-10.1); MAGNESIUM 2.4 mg/dL (1.8-2.4); PHOSPHOROUS 3.1 mg/dL (2.5-4.9); TOT PROT 5.2 g/dl (6.4-8.2)
[2021-03-24 06:51] LABS: BASO % 0.1 % (0-2.0); EOS % 0.8 % (0-4.5); HEMATOCRIT 26.6 % (35.4-49); HEMOGLOBIN 8.9 GM/dL (11.7-16.9); LYMPH % 15.1 % (8-40); MCH 30.2 pg (25.7-33.7); MCHC 33.5 g/dl (32.0-35.9); MEAN CELL VOLUME 90.1 fl (80-96); MEAN PLT VOLUME 8.7 fl (7.5-11.1); MONO % 8.7 % (3.8-10.2); NEUT % 75.3 % (42.8-82.8); PLATELET COUNT 328 10^3/uL (134-434); RBC 2.95 M/mm3 (4.00-5.60); RDW 13.7 % (11.9-15.9); WHITE BLOOD COUNT 9.1 K/mm3 (4.0-10.0)
[2021-03-24] MEDS: VECURONIUM BROMIDE 100 MG/100 ML BAG IVPB SCH (07:00)
[2021-03-24] MEDS: AMINO ACIDS/PROTEIN HYDROLYS 30 ML LIQUID.PKT PO SCH (08:30)
[2021-03-24] MEDS: DEXAMETHASONE SOD PHOSPHATE 10 MG/1 ML VIAL IVPUSH SCH (09:02)
[2021-03-24] MEDS: MUPIROCIN 2% TOPICAL OINTMENT FOR DECOLONIZATION NS SCH ×2 (09:02→22:17)
[2021-03-24] MEDS: PANTOPRAZOLE SODIUM 40 MG VIAL IVPUSH SCH (09:03)
[2021-03-24] MEDS: ENOXAPARIN NA (PORCINE) 40 MG/0.4 ML DISP.SYRIN SQ SCH ×2 (09:03→22:20)
[2021-03-24] MEDS: BARICITINIB 1 MG/10 ML LIQUID NGT SCH (10:13)
[2021-03-24 10:43] LABS: ARTERIAL BLD GAS O2 SATURATION 84.7 % (95-98); ARTERIAL BLOOD GAS BASE EXCESS 6.6 mmol/L (-2-2); ARTERIAL BLOOD GAS PO2 52.8 mmHg (80-100); ARTERIAL BLOOD GAS pH 7.352 (7.350-7.450)
[2021-03-24] MEDS: CHLORHEXIDINE GLUCONATE 4% CLEANSER FOR DECOLONIZATION TP SCH (22:17)
[2021-03-24] MEDS: NOREPINEPHRINE D5W PREMIX 16,000 MCG/500 ML BAG IVPB SCH (22:18)
[2021-03-25] MEDS: FENTANYL NS IVPB 500 MCG/100 ML BAG IVPB SCH ×3 (01:17→22:30)
[2021-03-25] MEDS ORDERED: DEXTROSE 5%-WATER 100 ML IVPB ONE ×3 (01:24→12:45)
[2021-03-25] MEDS ORDERED: PIPERACILLIN/TAZOBACTAM 4.5 GM VIAL IVPB ONE ×2 (01:24→09:18)
[2021-03-25] MEDS: PIPERACILLIN/TAZOB 4.5 GM 4.5 GM in DEXTROSE 5%-WATER 100 ML IVPB SCH ×2 (01:25→09:33)
[2021-03-25] MEDS: PROPOFOL 1,000,000 MCG/100 ML VIAL IVPB SCH ×3 (02:52→22:29)
[2021-03-25 06:03] LABS: ARTERIAL BLD GAS O2 SATURATION 92.7 % (95-98); ARTERIAL BLOOD GAS BASE EXCESS 3.8 mmol/L (-2-2); ARTERIAL BLOOD GAS pH 7.366 (7.350-7.450)
[2021-03-25 06:04] LABS: ALLENS TEST POSITIVE
[2021-03-25 06:05] LABS: VENT MODE A/C; VENT RATE 26
[2021-03-25 06:36] LABS: BASO % 0.2 % (0-2.0); EOS % 1.4 % (0-4.5); HEMATOCRIT 27.5 % (35.4-49); HEMOGLOBIN 9.3 GM/dL (11.7-16.9); LYMPH % 18.2 % (8-40); MCH 30.7 pg (25.7-33.7); MEAN CELL VOLUME 90.4 fl (80-96); MEAN PLT VOLUME 8.7 fl (7.5-11.1); MONO % 9.3 % (3.8-10.2); NEUT % 70.9 % (42.8-82.8); PLATELET COUNT 307 10^3/uL (134-434); RBC 3.04 M/mm3 (4.00-5.60); RDW 13.8 % (11.9-15.9)
[2021-03-25 07:08] LABS: CALCIUM 8.3 mg/dL (8.5-10.1)
[2021-03-25 07:09] LABS: ALBUMIN 1.9 g/dl (3.4-5.0); BLOOD UREA NITROGEN 22.2 mg/dL (7-18); MAGNESIUM 2.5 mg/dL (1.8-2.4)
[2021-03-25 07:12] LABS: CREATININE 0.7 mg/dL (0.55-1.3); PHOSPHOROUS 2.7 mg/dL (2.5-4.9)
[2021-03-25 07:13] LABS: BILIRUBIN,TOTAL 0.5 mg/dL (0.2-1); TOT PROT 5.4 g/dl (6.4-8.2)
[2021-03-25] MEDS: AMINO ACIDS/PROTEIN HYDROLYS 30 ML LIQUID.PKT PO SCH (09:00)
[2021-03-25] MEDS: MIDAZOLAM IN 0.9 % SOD.CHLORID 100 MG/100 ML PLAST..BAG IVPB SCH ×2 (09:29→19:05)
[2021-03-25] MEDS: LACTATED RINGERS SOLUTION 1,000 ML/1,000 ML INFUS.BAG IV SCH (09:31)
[2021-03-25] MEDS: DEXAMETHASONE SOD PHOSPHATE 10 MG/1 ML VIAL IVPUSH SCH (09:31)
[2021-03-25] MEDS: ENOXAPARIN NA (PORCINE) 40 MG/0.4 ML DISP.SYRIN SQ SCH ×2 (09:32→22:29)
[2021-03-25] MEDS: PANTOPRAZOLE SODIUM 40 MG VIAL IVPUSH SCH (09:33)
[2021-03-25] MEDS: BARICITINIB 1 MG/10 ML LIQUID NGT SCH (10:07)
[2021-03-25] MEDS: MUPIROCIN 2% TOPICAL OINTMENT FOR DECOLONIZATION NS SCH ×2 (10:07→22:29)
[2021-03-25] MEDS ORDERED: PROPOFOL 1,000,000 MCG/100 ML VIAL ONE (12:45)
[2021-03-25] MEDS: CEFTRIAXONE 2 GM in DEXTROSE 5%-WATER 2 GM/100 ML BAG IVPB SCH (12:45)
[2021-03-25] MEDS ORDERED: FUROSEMIDE 40 MG/4 ML INJECTABLE VIAL IVPUSH ONE (13:08)
[2021-03-25] MEDS ORDERED: PT OWN MED DRAWER 7, Y5N ONE (13:27)
[2021-03-25] MEDS: VECURONIUM BROMIDE 100 MG/100 ML BAG IVPB SCH (14:08)
[2021-03-25] MEDS: POLYETHYLENE GLYCOL (HEALTHYLAX) 3350 17 GM PACKET PO SCH (16:56)
[2021-03-25] MEDS: CHLORHEXIDINE GLUCONATE 4% CLEANSER FOR DECOLONIZATION TP SCH (22:29)
[2021-03-26] MEDS: PROPOFOL 1,000,000 MCG/100 ML VIAL IVPB SCH ×5 (03:11→23:40)
[2021-03-26] MEDS: FENTANYL NS IVPB 500 MCG/100 ML BAG IVPB SCH ×5 (03:11→23:42)
[2021-03-26 06:03] LABS: BASO % 0.2 % (0-2.0); LYMPH % 17.5 % (8-40); MCH 30.4 pg (25.7-33.7); MCHC 33.4 g/dl (32.0-35.9); MEAN CELL VOLUME 91.1 fl (80-96); MEAN PLT VOLUME 8.6 fl (7.5-11.1); NEUT % 71.3 % (42.8-82.8); PLATELET COUNT 330 10^3/uL (134-434); RBC 3.29 M/mm3 (4.00-5.60); RDW 13.6 % (11.9-15.9); WHITE BLOOD COUNT 10.9 K/mm3 (4.0-10.0)
[2021-03-26 06:32] LABS: CALCIUM 8.7 mg/dL (8.5-10.1)
[2021-03-26 06:33] LABS: ALBUMIN 2.1 g/dl (3.4-5.0)
[2021-03-26 06:34] LABS: MAGNESIUM 2.2 mg/dL (1.8-2.4)
[2021-03-26 06:36] LABS: CREATININE 0.7 mg/dL (0.55-1.3); PHOSPHOROUS 3.1 mg/dL (2.5-4.9)
[2021-03-26 06:37] LABS: BILIRUBIN,TOTAL 0.4 mg/dL (0.2-1); TOT PROT 5.9 g/dl (6.4-8.2)
[2021-03-26 06:47] LABS: BLOOD UREA NITROGEN 23.3 mg/dL (7-18)
[2021-03-26] MEDS: AMINO ACIDS/PROTEIN HYDROLYS 30 ML LIQUID.PKT PO SCH (07:56)
[2021-03-26] MEDS ORDERED: DEXTROSE 5%-WATER 100 ML IVPB ONE (09:27)
[2021-03-26] MEDS: CEFTRIAXONE 2 GM in DEXTROSE 5%-WATER 2 GM/100 ML BAG IVPB SCH (09:29)
[2021-03-26] MEDS: DEXAMETHASONE SOD PHOSPHATE 10 MG/1 ML VIAL IVPUSH SCH (09:29)
[2021-03-26] MEDS: POLYETHYLENE GLYCOL (HEALTHYLAX) 3350 17 GM PACKET PO SCH (09:29)
[2021-03-26] MEDS: PANTOPRAZOLE SODIUM 40 MG VIAL IVPUSH SCH (09:29)
[2021-03-26] MEDS: ENOXAPARIN NA (PORCINE) 40 MG/0.4 ML DISP.SYRIN SQ SCH ×2 (09:29→23:16)
[2021-03-26] MEDS: MULTIVITAMINS (DAILY MVI) TABLET (FP) PO SCH (10:04)
[2021-03-26] MEDS: MIDAZOLAM IN 0.9 % SOD.CHLORID 100 MG/100 ML PLAST..BAG IVPB SCH (15:05)
[2021-03-26] MEDS: VECURONIUM BROMIDE 100 MG/100 ML BAG IVPB SCH (17:07)
[2021-03-26] MEDS: CHLORHEXIDINE GLUCONATE 4% CLEANSER FOR DECOLONIZATION TP SCH (23:16)
[2021-03-27] MEDS: MIDAZOLAM IN 0.9 % SOD.CHLORID 100 MG/100 ML PLAST..BAG IVPB SCH ×3 (01:50→18:00)
[2021-03-27] MEDS: PROPOFOL 1,000,000 MCG/100 ML VIAL IVPB SCH ×5 (06:19→22:25)
[2021-03-27] MEDS: FENTANYL NS IVPB 500 MCG/100 ML BAG IVPB SCH ×4 (06:19→13:08)
[2021-03-27 08:40] LABS: BASO % 0.3 % (0-2.0); EOS % 2.6 % (0-4.5); HEMATOCRIT 27.2 % (35.4-49); HEMOGLOBIN 9.1 GM/dL (11.7-16.9); LYMPH % 18.9 % (8-40); MCH 30.7 pg (25.7-33.7); MCHC 33.4 g/dl (32.0-35.9); MEAN CELL VOLUME 91.7 fl (80-96); MEAN PLT VOLUME 8.3 fl (7.5-11.1); MONO % 10.4 % (3.8-10.2); NEUT % 67.8 % (42.8-82.8); PLATELET COUNT 283 10^3/uL (134-434); RBC 2.97 M/mm3 (4.00-5.60); RDW 13.9 % (11.9-15.9)
[2021-03-27 09:01] LABS: ALBUMIN 2.1 g/dl (3.4-5.0); BLOOD UREA NITROGEN 20.9 mg/dL (7-18); CALCIUM 8.6 mg/dL (8.5-10.1); MAGNESIUM 2.3 mg/dL (1.8-2.4)
[2021-03-27 09:04] LABS: CREATININE 0.6 mg/dL (0.55-1.3); PHOSPHOROUS 2.7 mg/dL (2.5-4.9)
[2021-03-27 09:06] LABS: BILIRUBIN,TOTAL 0.3 mg/dL (0.2-1); TOT PROT 5.4 g/dl (6.4-8.2)
[2021-03-27] MEDS ORDERED: DEXTROSE 5%-WATER 100 ML IVPB ONE (09:06)
[2021-03-27] MEDS: AMINO ACIDS/PROTEIN HYDROLYS 30 ML LIQUID.PKT PO SCH (09:09)
[2021-03-27] MEDS: PANTOPRAZOLE SODIUM 40 MG VIAL IVPUSH SCH (09:09)
[2021-03-27] MEDS: DEXAMETHASONE SOD PHOSPHATE 10 MG/1 ML VIAL IVPUSH SCH (09:09)
[2021-03-27] MEDS: POLYETHYLENE GLYCOL (HEALTHYLAX) 3350 17 GM PACKET PO SCH (09:09)
[2021-03-27] MEDS: ENOXAPARIN NA (PORCINE) 40 MG/0.4 ML DISP.SYRIN SQ SCH ×2 (09:09→23:15)
[2021-03-27] MEDS: CEFTRIAXONE 2 GM in DEXTROSE 5%-WATER 2 GM/100 ML BAG IVPB SCH (09:10)
[2021-03-27] MEDS ORDERED: LABETALOL HCL 5 MG/1 ML (100MG/20 ML VIAL) IVPUSH ONE (13:21)
[2021-03-27] MEDS ORDERED: ACETAMINOPHEN 1000 MG/100 ML VIAL IVPB ONE (13:22)
[2021-03-27] MEDS: MULTIVITAMINS (DAILY MVI) TABLET (FP) PO SCH (13:23)
[2021-03-27] MEDS ORDERED: LABETALOL HCL 5 MG/1 ML (100MG/20 ML VIAL) ONE (13:24)
[2021-03-27] MEDS: VECURONIUM BROMIDE 100 MG/100 ML BAG IVPB SCH (13:41)
[2021-03-27] MEDS ORDERED: NIFEdipine 10 MG CAPSULE (FP) PO SCH (14:00)
[2021-03-27] MEDS ORDERED: metoPROLOL SUCCINATE 25 MG TAB.SR.24H (FP) PO SCH (22:00)
[2021-03-27] MEDS: METOPROLOL TARTRATE 25 MG TABLET (FP) PO SCH (23:15)
[2021-03-27] MEDS: CHLORHEXIDINE GLUCONATE 4% CLEANSER FOR DECOLONIZATION TP SCH (23:15)
[2021-03-28] MEDS: FENTANYL NS IVPB 500 MCG/100 ML BAG IVPB SCH ×3 (00:52→14:00)
[2021-03-28] MEDS: PROPOFOL 1,000,000 MCG/100 ML VIAL IVPB SCH ×4 (04:53→16:20)
[2021-03-28] MEDS: MIDAZOLAM IN 0.9 % SOD.CHLORID 100 MG/100 ML PLAST..BAG IVPB SCH ×3 (04:53→14:55)
[2021-03-28 06:33] LABS: BASO % 0.5 % (0-2.0); EOS % 3.2 % (0-4.5); HEMATOCRIT 26.4 % (35.4-49); HEMOGLOBIN 8.7 GM/dL (11.7-16.9); LYMPH % 21.5 % (8-40); MCH 30.4 pg (25.7-33.7); MCHC 33.1 g/dl (32.0-35.9); MEAN CELL VOLUME 91.7 fl (80-96); MEAN PLT VOLUME 8.6 fl (7.5-11.1); MONO % 9.4 % (3.8-10.2); NEUT % 65.4 % (42.8-82.8); PLATELET COUNT 271 10^3/uL (134-434); RBC 2.87 M/mm3 (4.00-5.60); RDW 14.1 % (11.9-15.9)
[2021-03-28 06:53] LABS: CALCIUM 8.1 mg/dL (8.5-10.1)
[2021-03-28 06:54] LABS: BLOOD UREA NITROGEN 18.2 mg/dL (7-18); MAGNESIUM 2.4 mg/dL (1.8-2.4)
[2021-03-28 06:57] LABS: CREATININE 0.5 mg/dL (0.55-1.3); PHOSPHOROUS 2.7 mg/dL (2.5-4.9)
[2021-03-28 06:58] LABS: BILIRUBIN,TOTAL 0.3 mg/dL (0.2-1); TOT PROT 5.4 g/dl (6.4-8.2)
[2021-03-28] MEDS ORDERED: FUROSEMIDE 40 MG/4 ML INJECTABLE VIAL IVPUSH ONE (08:00)
[2021-03-28] MEDS: AMINO ACIDS/PROTEIN HYDROLYS 30 ML LIQUID.PKT PO SCH (08:40)
[2021-03-28] MEDS ORDERED: DEXTROSE 5%-WATER 100 ML IVPB ONE (08:45)
[2021-03-28] MEDS ORDERED: PT OWN MED DRAWER 7, Y5N ONE (08:52)
[2021-03-28 09:00] LABS: ARTERIAL BLD GAS O2 SATURATION 94.9 % (95-98); ARTERIAL BLOOD GAS BASE EXCESS 10.2 mmol/L (-2-2); ARTERIAL BLOOD GAS PO2 81.2 mmHg (80-100); ARTERIAL BLOOD GAS pH 7.344 (7.350-7.450)
[2021-03-28 09:07] LABS: ALLENS TEST POSITIVE
[2021-03-28 09:08] LABS: VENT MODE A/C; VENT RATE 26
[2021-03-28] MEDS: DEXAMETHASONE SOD PHOSPHATE 10 MG/1 ML VIAL IVPUSH SCH (09:13)
[2021-03-28] MEDS: POLYETHYLENE GLYCOL (HEALTHYLAX) 3350 17 GM PACKET PO SCH (09:13)
[2021-03-28] MEDS: ENOXAPARIN NA (PORCINE) 40 MG/0.4 ML DISP.SYRIN SQ SCH ×2 (09:13→21:57)
[2021-03-28] MEDS: PANTOPRAZOLE SODIUM 40 MG VIAL IVPUSH SCH (09:13)
[2021-03-28] MEDS: METOPROLOL TARTRATE 25 MG TABLET (FP) PO SCH ×2 (09:13→21:57)
[2021-03-28] MEDS: CEFTRIAXONE 2 GM in DEXTROSE 5%-WATER 2 GM/100 ML BAG IVPB SCH (09:14)
[2021-03-28] MEDS: VECURONIUM BROMIDE 100 MG/100 ML BAG IVPB SCH (12:16)
[2021-03-28] MEDS: MULTIVIT-MINERALS ORAL LIQUID NGT SCH (15:17)
[2021-03-28] MEDS: CHLORHEXIDINE GLUCONATE 4% CLEANSER FOR DECOLONIZATION TP SCH (21:57)
[2021-03-29] MEDS: PROPOFOL 1,000,000 MCG/100 ML VIAL IVPB SCH ×6 (00:12→21:22)
[2021-03-29] MEDS: MIDAZOLAM IN 0.9 % SOD.CHLORID 100 MG/100 ML PLAST..BAG IVPB SCH ×3 (00:13→07:30)
[2021-03-29] MEDS: FENTANYL NS IVPB 500 MCG/100 ML BAG IVPB SCH ×5 (01:51→18:00)
[2021-03-29] MEDS ORDERED: FUROSEMIDE 40 MG/4 ML INJECTABLE VIAL IVPUSH ONE ×2 (07:15→22:20)
[2021-03-29] MEDS: AMINO ACIDS/PROTEIN HYDROLYS 30 ML LIQUID.PKT PO SCH (07:30)
[2021-03-29] MEDS: VECURONIUM BROMIDE 100 MG/100 ML BAG IVPB SCH ×3 (07:31→19:30)
[2021-03-29 09:12] LABS: HEMATOCRIT 31.2 % (35.4-49); HEMOGLOBIN 10.4 GM/dL (11.7-16.9); MCH 30.3 pg (25.7-33.7); MCHC 33.3 g/dl (32.0-35.9); MEAN CELL VOLUME 90.9 fl (80-96); MEAN PLT VOLUME 8.5 fl (7.5-11.1); PLATELET COUNT 323 10^3/uL (134-434); RBC 3.43 M/mm3 (4.00-5.60); RDW 14.1 % (11.9-15.9); WHITE BLOOD COUNT 12.2 K/mm3 (4.0-10.0)
[2021-03-29] MEDS: DEXAMETHASONE SOD PHOSPHATE 10 MG/1 ML VIAL IVPUSH SCH (09:30)
[2021-03-29] MEDS: MULTIVIT-MINERALS ORAL LIQUID NGT SCH (09:30)
[2021-03-29] MEDS: ENOXAPARIN NA (PORCINE) 40 MG/0.4 ML DISP.SYRIN SQ SCH ×2 (09:31→21:25)
[2021-03-29] MEDS: POLYETHYLENE GLYCOL (HEALTHYLAX) 3350 17 GM PACKET PO SCH (09:31)
[2021-03-29] MEDS: METOPROLOL TARTRATE 25 MG TABLET (FP) PO SCH ×2 (09:31→21:25)
[2021-03-29] MEDS: PANTOPRAZOLE SODIUM 40 MG VIAL IVPUSH SCH (09:31)
[2021-03-29 09:52] LABS: CALCIUM 9.2 mg/dL (8.5-10.1)
[2021-03-29 09:56] LABS: CREATININE 0.7 mg/dL (0.55-1.3)
[2021-03-29] MEDS ORDERED: RAPID SEQUENCE INTUBATION KIT NR ONE (10:48)
[2021-03-29] MEDS: VECURONIUM BROMIDE 50 MG/50 ML VIAL IVPUSH ONE ×2 (11:02→18:23)
[2021-03-29] MEDS ORDERED: LISINOPRIL 10 MG TABLET NGT ONE (18:14)
[2021-03-29] MEDS ORDERED: ACETAMINOPHEN 1000 MG/100 ML VIAL IVPB ONE (18:14)
[2021-03-29] MEDS ORDERED: LISINOPRIL 10 MG TABLET PO ONE (18:14)
[2021-03-29] MEDS ORDERED: ACETAMINOPHEN INJECTION 100 ML IVPB ONE (18:19)
[2021-03-29] MEDS: CHLORHEXIDINE GLUCONATE 4% CLEANSER FOR DECOLONIZATION TP SCH (21:25)
[2021-03-30] MEDS: PROPOFOL 1,000,000 MCG/100 ML VIAL IVPB SCH ×5 (00:24→21:22)
[2021-03-30] MEDS: FENTANYL NS IVPB 500 MCG/100 ML BAG IVPB SCH ×3 (00:24→21:22)
[2021-03-30] MEDS: MIDAZOLAM IN 0.9 % SOD.CHLORID 100 MG/100 ML PLAST..BAG IVPB SCH ×2 (02:29→06:42)
[2021-03-30 07:31] LABS: HEMATOCRIT 29.8 % (35.4-49); HEMOGLOBIN 9.9 GM/dL (11.7-16.9); MCH 30.1 pg (25.7-33.7); MCHC 33.2 g/dl (32.0-35.9); MEAN CELL VOLUME 90.6 fl (80-96); MEAN PLT VOLUME 8.5 fl (7.5-11.1); PLATELET COUNT 260 10^3/uL (134-434); RBC 3.29 M/mm3 (4.00-5.60); RDW 14.3 % (11.9-15.9); WHITE BLOOD COUNT 13.4 K/mm3 (4.0-10.0)
[2021-03-30] MEDS: VECURONIUM BROMIDE 100 MG/100 ML BAG IVPB SCH (07:45)
[2021-03-30 07:55] LABS: CALCIUM 8.7 mg/dL (8.5-10.1); MAGNESIUM 2.6 mg/dL (1.8-2.4)
[2021-03-30 07:58] LABS: CREATININE 2.1 mg/dL (0.55-1.3)
[2021-03-30 07:59] LABS: BILIRUBIN,TOTAL 0.6 mg/dL (0.2-1); TOT PROT 5.5 g/dl (6.4-8.2)
[2021-03-30] MEDS: AMINO ACIDS/PROTEIN HYDROLYS 30 ML LIQUID.PKT PO SCH ×2 (09:00→17:45)
[2021-03-30] MEDS: ENOXAPARIN NA (PORCINE) 40 MG/0.4 ML DISP.SYRIN SQ SCH ×2 (09:52→21:21)
[2021-03-30] MEDS: POLYETHYLENE GLYCOL (HEALTHYLAX) 3350 17 GM PACKET PO SCH (09:52)
[2021-03-30] MEDS: PANTOPRAZOLE SODIUM 40 MG VIAL IVPUSH SCH (09:54)
[2021-03-30] MEDS ORDERED: PT OWN MED DRAWER 7, Y5N ONE (09:57)
[2021-03-30] MEDS: MULTIVIT-MINERALS ORAL LIQUID NGT SCH (09:58)
[2021-03-30 11:25] LABS: ARTERIAL BLD GAS O2 SATURATION 92.2 % (95-98); ARTERIAL BLOOD GAS BASE EXCESS 11.4 mmol/L (-2-2); ARTERIAL BLOOD GAS PO2 66.3 mmHg (80-100); ARTERIAL BLOOD GAS pH 7.385 (7.350-7.450)
[2021-03-30 11:26] LABS: ALLENS TEST POSITIVE
[2021-03-30 11:27] LABS: VENT MODE VOL/AC; VENT RATE 26
[2021-03-30] MEDS: CHLORHEXIDINE GLUCONATE 4% CLEANSER FOR DECOLONIZATION TP SCH (21:21)
[2021-03-31] MEDS: PROPOFOL 1,000,000 MCG/100 ML VIAL IVPB SCH ×3 (02:00→20:00)
[2021-03-31] MEDS: MIDAZOLAM IN 0.9 % SOD.CHLORID 100 MG/100 ML PLAST..BAG IVPB SCH (03:00)
[2021-03-31] MEDS: FENTANYL NS IVPB 500 MCG/100 ML BAG IVPB SCH ×2 (03:00→20:00)
[2021-03-31 06:32] LABS: ARTERIAL BLD GAS O2 SATURATION 92.4 % (95-98); ARTERIAL BLOOD GAS BASE EXCESS 11.8 mmol/L (-2-2); ARTERIAL BLOOD GAS PO2 66.1 mmHg (80-100); ARTERIAL BLOOD GAS pH 7.397 (7.350-7.450)
[2021-03-31 06:38] LABS: ALLENS TEST POSITIVE; VENT MODE A/C
[2021-03-31 06:39] LABS: VENT RATE 26
[2021-03-31 07:06] LABS: BASO % 0.3 % (0-2.0); EOS % 3.5 % (0-4.5); HEMATOCRIT 29.6 % (35.4-49); HEMOGLOBIN 9.8 GM/dL (11.7-16.9); LYMPH % 11.1 % (8-40); MCH 30.3 pg (25.7-33.7); MCHC 33.2 g/dl (32.0-35.9); MEAN CELL VOLUME 91.2 fl (80-96); MEAN PLT VOLUME 8.8 fl (7.5-11.1); NEUT % 78.1 % (42.8-82.8); PLATELET COUNT 265 10^3/uL (134-434); RBC 3.25 M/mm3 (4.00-5.60); RDW 14.9 % (11.9-15.9); WHITE BLOOD COUNT 11.1 K/mm3 (4.0-10.0)
[2021-03-31 07:42] LABS: CALCIUM 8.3 mg/dL (8.5-10.1)
[2021-03-31 07:43] LABS: BLOOD UREA NITROGEN 44.3 mg/dL (7-18); MAGNESIUM 2.4 mg/dL (1.8-2.4)
[2021-03-31 07:46] LABS: CREATININE 1.1 mg/dL (0.55-1.3); PHOSPHOROUS 3.3 mg/dL (2.5-4.9)
[2021-03-31 07:48] LABS: BILIRUBIN,TOTAL 0.5 mg/dL (0.2-1)
[2021-03-31 07:49] LABS: TOT PROT 5.8 g/dl (6.4-8.2)
[2021-03-31] MEDS ORDERED: FUROSEMIDE 40 MG/4 ML INJECTABLE VIAL IVPUSH ONE (08:10)
[2021-03-31] MEDS ORDERED: ACETAMINOPHEN 1000 MG/100 ML VIAL IVPB ONE (08:11)
[2021-03-31 08:44] LABS: EPI CELLS >36 /uL (0-25.1); HYALINE CASTS 32 /uL (0-3.1); PH,URINE 5.5 (5.0-8.0); URINE APPEARANCE TURBID; URINE BACTERIA 26 /uL (0-1359); URINE BILIRUBIN NEGATIVE (NEGATIVE); URINE COLOR YELLOW; URINE GLUCOSE (UA) NEGATIVE (NEGATIVE); URINE KETONE NEGATIVE (NEGATIVE); URINE LEUK ESTERASE 2+ (NEGATIVE); URINE NITRITE NEGATIVE (NEGATIVE); URINE PROTEIN 2+ (NEGATIVE); URINE RBC 3303 /uL (0-23.9); URINE WBC 1349 /uL (0-25.8)
[2021-03-31] MEDS: MULTIVIT-MINERALS ORAL LIQUID NGT SCH (09:00)
[2021-03-31] MEDS: AMINO ACIDS/PROTEIN HYDROLYS 30 ML LIQUID.PKT PO SCH ×2 (09:00→17:05)
[2021-03-31] MEDS: VECURONIUM BROMIDE 100 MG/100 ML BAG IVPB SCH (09:00)
[2021-03-31] MEDS: POLYETHYLENE GLYCOL (HEALTHYLAX) 3350 17 GM PACKET PO SCH (09:41)
[2021-03-31] MEDS: ENOXAPARIN NA (PORCINE) 40 MG/0.4 ML DISP.SYRIN SQ SCH ×2 (09:43→21:24)
[2021-03-31] MEDS: PANTOPRAZOLE SODIUM 40 MG VIAL IVPUSH SCH (09:43)
[2021-03-31] MEDS ORDERED: PT OWN MED DRAWER 7, Y5N ONE (09:46)
[2021-03-31 12:22] LABS: BASO % 0.5 % (0-2.0); HEMATOCRIT 28.9 % (35.4-49); HEMOGLOBIN 9.7 GM/dL (11.7-16.9); LYMPH % 8.7 % (8-40); MCH 30.6 pg (25.7-33.7); MCHC 33.4 g/dl (32.0-35.9); MEAN CELL VOLUME 91.5 fl (80-96); MEAN PLT VOLUME 8.3 fl (7.5-11.1); MONO % 8.5 % (3.8-10.2); NEUT % 79.3 % (42.8-82.8); PLATELET COUNT 245 10^3/uL (134-434); RBC 3.16 M/mm3 (4.00-5.60); RDW 14.7 % (11.9-15.9)
[2021-03-31] MEDS ORDERED: PIPERACILLIN/TAZOBACTAM 3.375 GM VIAL IVPB ONE ×2 (12:38→16:26)
[2021-03-31] MEDS ORDERED: DEXTROSE 5%-WATER - 50 ML IVPB ONE ×2 (12:38→16:26)
[2021-03-31] MEDS: PIPERACILLIN/TAZOB 3.375 GM 3.375 GM in DEXTROSE 5%-WATER - 50 ML IVPB SCH ×2 (12:40→17:05)
[2021-03-31 17:08] LABS: CALCIUM 8.4 mg/dL (8.5-10.1)
[2021-03-31 17:09] LABS: ALBUMIN 1.7 g/dl (3.4-5.0); BLOOD UREA NITROGEN 46.8 mg/dL (7-18); MAGNESIUM 2.2 mg/dL (1.8-2.4)
[2021-03-31 17:14] LABS: BILIRUBIN,TOTAL 0.5 mg/dL (0.2-1); TOT PROT 5.3 g/dl (6.4-8.2)
[2021-03-31] MEDS ORDERED: POTASSIUM CHLORIDE 20 MEQ PREMIX IVPB 100 ML IVPB ONE (17:21)
[2021-03-31] MEDS: CHLORHEXIDINE GLUCONATE 4% CLEANSER FOR DECOLONIZATION TP SCH (21:24)
[2021-04-01] MEDS ORDERED: DEXTROSE 5%-WATER - 50 ML IVPB ONE ×2 (00:48→09:05)
[2021-04-01] MEDS ORDERED: PIPERACILLIN/TAZOBACTAM 3.375 GM VIAL IVPB ONE ×2 (00:48→09:05)
[2021-04-01] MEDS: PIPERACILLIN/TAZOB 3.375 GM 3.375 GM in DEXTROSE 5%-WATER - 50 ML IVPB SCH (01:05)
[2021-04-01] MEDS: PROPOFOL 1,000,000 MCG/100 ML VIAL IVPB SCH ×5 (01:05→19:40)
[2021-04-01] MEDS: FENTANYL NS IVPB 500 MCG/100 ML BAG IVPB SCH ×5 (01:06→22:15)
[2021-04-01] MEDS: MIDAZOLAM IN 0.9 % SOD.CHLORID 100 MG/100 ML PLAST..BAG IVPB SCH ×3 (02:00→23:12)
[2021-04-01 06:01] LABS: ARTERIAL BLD GAS O2 SATURATION 96.8 % (95-98); ARTERIAL BLOOD GAS BASE EXCESS 12.7 mmol/L (-2-2); ARTERIAL BLOOD GAS PO2 86.2 mmHg (80-100); ARTERIAL BLOOD GAS pH 7.463 (7.350-7.450)
[2021-04-01 06:04] LABS: ALLENS TEST POSITIVE
[2021-04-01 06:05] LABS: VENT MODE A/C; VENT RATE 26
[2021-04-01] MEDS: ACETAMINOPHEN 1000 MG/100 ML VIAL IVPB PRN ×2 (06:31→15:24)
[2021-04-01 07:03] LABS: BASO % 0.3 % (0-2.0); EOS % 4.3 % (0-4.5); HEMATOCRIT 23.8 % (35.4-49); HEMOGLOBIN 7.9 GM/dL (11.7-16.9); LYMPH % 11.9 % (8-40); MCH 30.3 pg (25.7-33.7); MCHC 33.2 g/dl (32.0-35.9); MEAN CELL VOLUME 91.4 fl (80-96); MEAN PLT VOLUME 8.5 fl (7.5-11.1); MONO % 8.5 % (3.8-10.2); PLATELET COUNT 211 10^3/uL (134-434); RBC 2.61 M/mm3 (4.00-5.60)
[2021-04-01 07:09] LABS: MAGNESIUM 2.2 mg/dL (1.8-2.4)
[2021-04-01 07:13] LABS: PHOSPHOROUS 3.2 mg/dL (2.5-4.9)
[2021-04-01] MEDS: AMINO ACIDS/PROTEIN HYDROLYS 30 ML LIQUID.PKT PO SCH ×2 (09:12→17:53)
[2021-04-01] MEDS: PANTOPRAZOLE SODIUM 40 MG VIAL IVPUSH SCH (09:13)
[2021-04-01] MEDS: POLYETHYLENE GLYCOL (HEALTHYLAX) 3350 17 GM PACKET PO SCH (09:13)
[2021-04-01] MEDS: ENOXAPARIN NA (PORCINE) 40 MG/0.4 ML DISP.SYRIN SQ SCH ×2 (09:14→21:35)
[2021-04-01] MEDS ORDERED: PIPERACILLIN/TAZOB 3.375 GM 3.375 GM in DEXTROSE 5%-WATER - 50 ML IVPB SCH (10:00)
[2021-04-01] MEDS ORDERED: PT OWN MED DRAWER 7, Y5N ONE (12:05)
[2021-04-01] MEDS: MULTIVIT-MINERALS ORAL LIQUID NGT SCH (12:06)
[2021-04-01] MEDS: FUROSEMIDE 40 MG/4 ML INJECTABLE VIAL IVPUSH SCH (13:33)
[2021-04-01 14:20] LABS: BASO % 0.4 % (0-2.0); HEMATOCRIT 23.4 % (35.4-49); HEMOGLOBIN 7.9 GM/dL (11.7-16.9); LYMPH % 9.9 % (8-40); MCH 30.4 pg (25.7-33.7); MCHC 33.8 g/dl (32.0-35.9); MEAN PLT VOLUME 8.2 fl (7.5-11.1); MONO % 9.9 % (3.8-10.2); NEUT % 75.8 % (42.8-82.8); PLATELET COUNT 206 10^3/uL (134-434); RDW 14.8 % (11.9-15.9); WHITE BLOOD COUNT 7.7 K/mm3 (4.0-10.0)
[2021-04-01 14:43] LABS: MAGNESIUM 2.3 mg/dL (1.8-2.4)
[2021-04-01 14:46] LABS: PHOSPHOROUS 3.6 mg/dL (2.5-4.9)
[2021-04-01] MEDS ORDERED: PIPERACILLIN/TAZOBACTAM 4.5 GM VIAL IVPB ONE (17:48)
[2021-04-01] MEDS ORDERED: DEXTROSE 5%-WATER 100 ML IVPB ONE (17:48)
[2021-04-01] MEDS: PIPERACILLIN/TAZOB 4.5 GM 4.5 GM in DEXTROSE 5%-WATER 100 ML IVPB SCH (17:53)
[2021-04-01] MEDS: CHLORHEXIDINE GLUCONATE 4% CLEANSER FOR DECOLONIZATION TP SCH (21:35)
[2021-04-02] MEDS ORDERED: DEXTROSE 5%-WATER 100 ML IVPB ONE ×3 (00:52→16:29)
[2021-04-02] MEDS ORDERED: PIPERACILLIN/TAZOBACTAM 4.5 GM VIAL IVPB ONE ×3 (00:52→16:28)
[2021-04-02] MEDS: PIPERACILLIN/TAZOB 4.5 GM 4.5 GM in DEXTROSE 5%-WATER 100 ML IVPB SCH ×3 (01:14→17:26)
[2021-04-02] MEDS: PROPOFOL 1,000,000 MCG/100 ML VIAL IVPB SCH ×4 (01:14→23:40)
[2021-04-02] MEDS: FENTANYL NS IVPB 500 MCG/100 ML BAG IVPB SCH ×3 (03:20→23:35)
[2021-04-02] MEDS: MIDAZOLAM IN 0.9 % SOD.CHLORID 100 MG/100 ML PLAST..BAG IVPB SCH (06:19)
[2021-04-02 06:55] LABS: BASO % 0.3 % (0-2.0); EOS % 4.3 % (0-4.5); HEMATOCRIT 23.2 % (35.4-49); HEMOGLOBIN 7.8 GM/dL (11.7-16.9); LYMPH % 13.4 % (8-40); MCH 30.6 pg (25.7-33.7); MCHC 33.6 g/dl (32.0-35.9); MEAN CELL VOLUME 91.2 fl (80-96); MEAN PLT VOLUME 8.6 fl (7.5-11.1); PLATELET COUNT 219 10^3/uL (134-434); RBC 2.54 M/mm3 (4.00-5.60); RDW 14.9 % (11.9-15.9)
[2021-04-02 07:27] LABS: ALBUMIN 1.6 g/dl (3.4-5.0)
[2021-04-02 07:29] LABS: BLOOD UREA NITROGEN 32.4 mg/dL (7-18); PHOSPHOROUS 3.6 mg/dL (2.5-4.9)
[2021-04-02 07:30] LABS: CALCIUM 8.2 mg/dL (8.5-10.1); TOT PROT 5.2 g/dl (6.4-8.2)
[2021-04-02 07:31] LABS: CREATININE 0.8 mg/dL (0.55-1.3)
[2021-04-02 07:37] LABS: BILIRUBIN,TOTAL 0.5 mg/dL (0.2-1)
[2021-04-02] MEDS ORDERED: POTASSIUM CHLORIDE ORAL LIQUID 20 MEQ/15 ML PO ONE (09:00)
[2021-04-02] MEDS: AMINO ACIDS/PROTEIN HYDROLYS 30 ML LIQUID.PKT PO SCH ×2 (09:38→17:26)
[2021-04-02] MEDS: KCL 10 MEQ IVPB 10 MEQ/100 ML INFUS.BAG IVPB SCH ×3 (10:00→12:15)
[2021-04-02] MEDS: POLYETHYLENE GLYCOL (HEALTHYLAX) 3350 17 GM PACKET PO SCH (10:38)
[2021-04-02] MEDS: PANTOPRAZOLE SODIUM 40 MG VIAL IVPUSH SCH (10:38)
[2021-04-02] MEDS: ENOXAPARIN NA (PORCINE) 40 MG/0.4 ML DISP.SYRIN SQ SCH ×2 (10:39→21:55)
[2021-04-02] MEDS: FUROSEMIDE 40 MG/4 ML INJECTABLE VIAL IVPUSH SCH (10:39)
[2021-04-02] MEDS ORDERED: PT OWN MED DRAWER 7, Y5N ONE (10:43)
[2021-04-02] MEDS: MULTIVIT-MINERALS ORAL LIQUID NGT SCH (10:44)
[2021-04-02] MEDS ORDERED: DEXTROSE 5%-WATER 500 ML PVC-FREE INFUS.BAG IV SCH (12:45)
[2021-04-02] MEDS ORDERED: DEXTROSE 5%-WATER - 1,000 ML IV SCH (13:00)
[2021-04-02] MEDS: CHLORHEXIDINE GLUCONATE 4% CLEANSER FOR DECOLONIZATION TP SCH (21:55)
[2021-04-03] MEDS: MIDAZOLAM IN 0.9 % SOD.CHLORID 100 MG/100 ML PLAST..BAG IVPB SCH ×2 (02:00→12:40)
[2021-04-03] MEDS: PROPOFOL 1,000,000 MCG/100 ML VIAL IVPB SCH ×4 (02:15→15:12)
[2021-04-03] MEDS: FENTANYL NS IVPB 500 MCG/100 ML BAG IVPB SCH ×2 (02:30→04:58)
[2021-04-03] MEDS ORDERED: DEXTROSE 5%-WATER 100 ML IVPB ONE ×3 (02:40→17:08)
[2021-04-03] MEDS ORDERED: PIPERACILLIN/TAZOBACTAM 4.5 GM VIAL IVPB ONE ×3 (02:40→17:08)
[2021-04-03] MEDS: PIPERACILLIN/TAZOB 4.5 GM 4.5 GM in DEXTROSE 5%-WATER 100 ML IVPB SCH ×3 (02:48→17:16)
[2021-04-03 06:48] LABS: HEMATOCRIT 24.2 % (35.4-49); MCH 30.7 pg (25.7-33.7); MCHC 33.1 g/dl (32.0-35.9); MEAN CELL VOLUME 92.9 fl (80-96); MEAN PLT VOLUME 8.7 fl (7.5-11.1); PLATELET COUNT 234 10^3/uL (134-434); RBC 2.61 M/mm3 (4.00-5.60); WHITE BLOOD COUNT 6.7 K/mm3 (4.0-10.0)
[2021-04-03 07:15] LABS: ALBUMIN 1.6 g/dl (3.4-5.0); CALCIUM 8.1 mg/dL (8.5-10.1)
[2021-04-03 07:16] LABS: BLOOD UREA NITROGEN 22.9 mg/dL (7-18); MAGNESIUM 1.7 mg/dL (1.8-2.4)
[2021-04-03 07:18] LABS: CREATININE 0.6 mg/dL (0.55-1.3)
[2021-04-03 07:19] LABS: PHOSPHOROUS 3.7 mg/dL (2.5-4.9)
[2021-04-03 07:20] LABS: BILIRUBIN,TOTAL 0.4 mg/dL (0.2-1); TOT PROT 5.6 g/dl (6.4-8.2)
[2021-04-03] MEDS ORDERED: MAGNESIUM SULF 50% (8.12 MEQ/2 ML-1 GM VIAL) IVPB ONE (08:59)
[2021-04-03] MEDS: AMINO ACIDS/PROTEIN HYDROLYS 30 ML LIQUID.PKT PO SCH ×2 (09:00→17:16)
[2021-04-03 09:34] LABS: ANISOCYTOSIS 1+; MACROCYTOSIS 1+; PLATELET ESTIMATE NORMAL
[2021-04-03] MEDS: POLYETHYLENE GLYCOL (HEALTHYLAX) 3350 17 GM PACKET PO SCH (10:09)
[2021-04-03] MEDS: PANTOPRAZOLE SODIUM 40 MG VIAL IVPUSH SCH (10:12)
[2021-04-03] MEDS: FUROSEMIDE 40 MG/4 ML INJECTABLE VIAL IVPUSH SCH ×2 (10:14→14:50)
[2021-04-03] MEDS: ENOXAPARIN NA (PORCINE) 40 MG/0.4 ML DISP.SYRIN SQ SCH ×2 (10:24→23:56)
[2021-04-03] MEDS: MULTIVIT-MINERALS ORAL LIQUID NGT SCH (10:55)
[2021-04-03] MEDS ORDERED: DEXTROSE 5%-WATER - 1,000 ML IV SCH (13:45)
[2021-04-03] MEDS: CHLORHEXIDINE GLUCONATE 4% CLEANSER FOR DECOLONIZATION TP SCH (23:54)
[2021-04-04] MEDS ORDERED: DEXTROSE 5%-WATER 100 ML IVPB ONE ×2 (01:19→08:56)
[2021-04-04] MEDS ORDERED: PIPERACILLIN/TAZOBACTAM 4.5 GM VIAL IVPB ONE ×2 (01:19→08:56)
[2021-04-04] MEDS: PIPERACILLIN/TAZOB 4.5 GM 4.5 GM in DEXTROSE 5%-WATER 100 ML IVPB SCH ×3 (02:00→18:02)
[2021-04-04] MEDS: PROPOFOL 1,000,000 MCG/100 ML VIAL IVPB SCH ×5 (03:54→17:14)
[2021-04-04] MEDS: FENTANYL NS IVPB 500 MCG/100 ML BAG IVPB SCH ×4 (03:54→18:58)
[2021-04-04] MEDS: FUROSEMIDE 40 MG/4 ML INJECTABLE VIAL IVPUSH SCH ×2 (05:47→09:01)
[2021-04-04 07:14] LABS: HEMATOCRIT 24.1 % (35.4-49); HEMOGLOBIN 7.9 GM/dL (11.7-16.9); MCH 30.2 pg (25.7-33.7); MCHC 32.9 g/dl (32.0-35.9); MEAN CELL VOLUME 91.6 fl (80-96); MEAN PLT VOLUME 8.6 fl (7.5-11.1); PLATELET COUNT 257 10^3/uL (134-434); RBC 2.63 M/mm3 (4.00-5.60); RDW 14.9 % (11.9-15.9); WHITE BLOOD COUNT 7.7 K/mm3 (4.0-10.0)
[2021-04-04 07:39] LABS: ALBUMIN 1.7 g/dl (3.4-5.0)
[2021-04-04 07:40] LABS: BLOOD UREA NITROGEN 18.7 mg/dL (7-18); CREATININE 0.6 mg/dL (0.55-1.3); MAGNESIUM 1.9 mg/dL (1.8-2.4)
[2021-04-04 07:41] LABS: BILIRUBIN,TOTAL 0.3 mg/dL (0.2-1); TOT PROT 5.6 g/dl (6.4-8.2)
[2021-04-04 07:42] LABS: CALCIUM 8.5 mg/dL (8.5-10.1)
[2021-04-04 07:43] LABS: PHOSPHOROUS 3.6 mg/dL (2.5-4.9)
[2021-04-04] MEDS: AMINO ACIDS/PROTEIN HYDROLYS 30 ML LIQUID.PKT PO SCH ×2 (08:51→17:03)
[2021-04-04] MEDS ORDERED: PT OWN MED DRAWER 7, Y5N ONE ×2 (08:57→17:05)
[2021-04-04] MEDS: ENOXAPARIN NA (PORCINE) 40 MG/0.4 ML DISP.SYRIN SQ SCH (09:01)
[2021-04-04] MEDS: POLYETHYLENE GLYCOL (HEALTHYLAX) 3350 17 GM PACKET PO SCH (09:01)
[2021-04-04] MEDS: PANTOPRAZOLE SODIUM 40 MG VIAL IVPUSH SCH (09:01)
[2021-04-04] MEDS: MULTIVIT-MINERALS ORAL LIQUID NGT SCH (09:02)
[2021-04-04 10:30] LABS: ANISOCYTOSIS 1+; MACROCYTOSIS 0; PLATELET ESTIMATE NORMAL; TEAR DROP CELLS 1+
[2021-04-04] MEDS ORDERED: VECURONIUM BROMIDE 50 MG/50 ML VIAL IVPUSH ONE (10:52)
[2021-04-04] MEDS ORDERED: VECURONIUM BROMIDE 20 MG/20 ML VIAL ONE (10:58)
[2021-04-04] MEDS ORDERED: VECURONIUM BROMIDE 20 MG/20 ML VIAL IV ONE ×2 (11:15→13:15)
[2021-04-04] MEDS: dilTIAZem HCL 50 MG/10 ML - 10 ML VIAL IVPUSH PRN (12:56)
[2021-04-04] MEDS: VECURONIUM BROMIDE 100 MG/100 ML BAG IVPB SCH (13:49)
[2021-04-04 15:58] VITALS: BMI 36.4
[2021-04-04] MEDS ORDERED: VANCOMYCIN/WATER 1,250 MG/250 ML BAG IVPB ONE (17:15)
[2021-04-04] MEDS: MIDAZOLAM IN 0.9 % SOD.CHLORID 100 MG/100 ML PLAST..BAG IVPB SCH (17:15)
[2021-04-05] MEDS ORDERED: PIPERACILLIN/TAZOBACTAM 4.5 GM VIAL IVPB ONE ×4 (00:10→22:25)
[2021-04-05] MEDS ORDERED: DEXTROSE 5%-WATER 100 ML IVPB ONE ×4 (00:11→22:25)
[2021-04-05] MEDS: CHLORHEXIDINE GLUCONATE 4% CLEANSER FOR DECOLONIZATION TP SCH ×2 (01:44→23:13)
[2021-04-05] MEDS: ENOXAPARIN NA (PORCINE) 40 MG/0.4 ML DISP.SYRIN SQ SCH ×3 (01:45→23:13)
[2021-04-05] MEDS: PIPERACILLIN/TAZOB 4.5 GM 4.5 GM in DEXTROSE 5%-WATER 100 ML IVPB SCH ×3 (03:00→18:38)
[2021-04-05] MEDS: MIDAZOLAM IN 0.9 % SOD.CHLORID 100 MG/100 ML PLAST..BAG IVPB SCH ×2 (06:35→13:15)
[2021-04-05 07:35] LABS: ALBUMIN 1.7 g/dl (3.4-5.0); BLOOD UREA NITROGEN 19.6 mg/dL (7-18); CALCIUM 8.5 mg/dL (8.5-10.1)
[2021-04-05 07:38] LABS: CREATININE 0.7 mg/dL (0.55-1.3); PHOSPHOROUS 3.8 mg/dL (2.5-4.9)
[2021-04-05 07:40] LABS: BILIRUBIN,TOTAL 0.5 mg/dL (0.2-1); TOT PROT 5.6 g/dl (6.4-8.2)
[2021-04-05 07:45] LABS: HEMATOCRIT 22.7 % (35.4-49); HEMOGLOBIN 7.6 GM/dL (11.7-16.9); MCH 30.8 pg (25.7-33.7); MCHC 33.5 g/dl (32.0-35.9); MEAN CELL VOLUME 91.9 fl (80-96); MEAN PLT VOLUME 8.8 fl (7.5-11.1); PLATELET COUNT 313 10^3/uL (134-434); RBC 2.47 M/mm3 (4.00-5.60); RDW 14.7 % (11.9-15.9); WHITE BLOOD COUNT 7.6 K/mm3 (4.0-10.0)
[2021-04-05 09:50] LABS: ANISOCYTOSIS 1+; MACROCYTOSIS 0; PLATELET ESTIMATE NORMAL; TEAR DROP CELLS 1+
[2021-04-05] MEDS: FUROSEMIDE 40 MG/4 ML INJECTABLE VIAL IVPUSH SCH (11:46)
[2021-04-05] MEDS: POLYETHYLENE GLYCOL (HEALTHYLAX) 3350 17 GM PACKET PO SCH (11:46)
[2021-04-05] MEDS: PROPOFOL 1,000,000 MCG/100 ML VIAL IVPB SCH ×2 (11:46→23:12)
[2021-04-05] MEDS: AMINO ACIDS/PROTEIN HYDROLYS 30 ML LIQUID.PKT PO SCH ×2 (11:46→18:38)
[2021-04-05] MEDS: MULTIVIT-MINERALS ORAL LIQUID NGT SCH (11:46)
[2021-04-05] MEDS: PANTOPRAZOLE SODIUM 40 MG VIAL IVPUSH SCH (11:47)
[2021-04-05] MEDS ORDERED: PT OWN MED DRAWER 7, Y5N ONE ×2 (11:48→11:52)
[2021-04-05] MEDS: VANCOMYCIN/WATER BAGS 1,250 MG/250 ML BAG IVPB SCH (11:56)
[2021-04-05] MEDS ORDERED: FUROSEMIDE 40 MG/4 ML INJECTABLE VIAL IVPUSH ONE (21:12)
[2021-04-05] MEDS: VECURONIUM BROMIDE 100 MG/100 ML BAG IVPB SCH (23:12)
[2021-04-06] MEDS ORDERED: PT OWN MED DRAWER 7, Y5N ONE ×3 (00:27→22:11)
[2021-04-06] MEDS: VANCOMYCIN/WATER BAGS 1,250 MG/250 ML BAG IVPB SCH ×3 (00:33→22:15)
[2021-04-06] MEDS: PIPERACILLIN/TAZOB 4.5 GM 4.5 GM in DEXTROSE 5%-WATER 100 ML IVPB SCH ×3 (01:38→17:33)
[2021-04-06 06:50] LABS: HEMATOCRIT 22.3 % (35.4-49); HEMOGLOBIN 7.4 GM/dL (11.7-16.9); MCH 30.7 pg (25.7-33.7); MCHC 33.3 g/dl (32.0-35.9); MEAN CELL VOLUME 92.2 fl (80-96); MEAN PLT VOLUME 8.5 fl (7.5-11.1); PLATELET COUNT 364 10^3/uL (134-434); RBC 2.42 M/mm3 (4.00-5.60); RDW 15.1 % (11.9-15.9); WHITE BLOOD COUNT 8.3 K/mm3 (4.0-10.0)
[2021-04-06] MEDS: MIDAZOLAM IN 0.9 % SOD.CHLORID 100 MG/100 ML PLAST..BAG IVPB SCH ×2 (07:00→17:35)
[2021-04-06 07:20] LABS: ALBUMIN 1.6 g/dl (3.4-5.0); BLOOD UREA NITROGEN 18.3 mg/dL (7-18); CALCIUM 7.8 mg/dL (8.5-10.1); MAGNESIUM 1.9 mg/dL (1.8-2.4)
[2021-04-06 07:24] LABS: CREATININE 0.6 mg/dL (0.55-1.3)
[2021-04-06 07:25] LABS: BILIRUBIN,TOTAL 0.7 mg/dL (0.2-1); TOT PROT 5.6 g/dl (6.4-8.2)
[2021-04-06] MEDS: PROPOFOL 1,000,000 MCG/100 ML VIAL IVPB SCH ×4 (08:00→23:30)
[2021-04-06] MEDS: FENTANYL NS IVPB 500 MCG/100 ML BAG IVPB SCH ×2 (08:00→19:20)
[2021-04-06 10:07] LABS: ANISOCYTOSIS 2+; MACROCYTOSIS 0; PLATELET ESTIMATE NORMAL
[2021-04-06] MEDS ORDERED: PIPERACILLIN/TAZOBACTAM 4.5 GM VIAL IVPB ONE ×2 (10:39→17:23)
[2021-04-06] MEDS ORDERED: DEXTROSE 5%-WATER 100 ML IVPB ONE ×2 (10:39→17:23)
[2021-04-06] MEDS: PANTOPRAZOLE SODIUM 40 MG VIAL IVPUSH SCH (10:41)
[2021-04-06] MEDS: AMINO ACIDS/PROTEIN HYDROLYS 30 ML LIQUID.PKT PO SCH ×2 (10:42→17:32)
[2021-04-06] MEDS: FUROSEMIDE 40 MG/4 ML INJECTABLE VIAL IVPUSH SCH ×2 (10:46→13:50)
[2021-04-06] MEDS: POLYETHYLENE GLYCOL (HEALTHYLAX) 3350 17 GM PACKET PO SCH (10:54)
[2021-04-06] MEDS: ENOXAPARIN NA (PORCINE) 40 MG/0.4 ML DISP.SYRIN SQ SCH ×2 (10:54→22:15)
[2021-04-06] MEDS: MULTIVIT-MINERALS ORAL LIQUID NGT SCH (10:55)
[2021-04-06] MEDS ORDERED: POTASSIUM CHLORIDE ORAL LIQUID 20 MEQ/15 ML PO ONE (11:52)
[2021-04-06] MEDS: VECURONIUM BROMIDE 100 MG/100 ML BAG IVPB SCH ×3 (13:00→22:36)
[2021-04-06] MEDS ORDERED: dilTIAZem HCL 50 MG/10 ML - 10 ML VIAL IVPUSH ONE (21:58)
[2021-04-06] MEDS: CHLORHEXIDINE GLUCONATE 4% CLEANSER FOR DECOLONIZATION TP SCH (22:07)
[2021-04-07] MEDS ORDERED: PIPERACILLIN/TAZOBACTAM 4.5 GM VIAL IVPB ONE ×3 (01:23→17:40)
[2021-04-07] MEDS ORDERED: DEXTROSE 5%-WATER 100 ML IVPB ONE ×3 (01:23→17:40)
[2021-04-07] MEDS: PIPERACILLIN/TAZOB 4.5 GM 4.5 GM in DEXTROSE 5%-WATER 100 ML IVPB SCH ×3 (01:35→17:43)
[2021-04-07] MEDS: FENTANYL NS IVPB 500 MCG/100 ML BAG IVPB SCH ×4 (02:20→17:55)
[2021-04-07] MEDS: PROPOFOL 1,000,000 MCG/100 ML VIAL IVPB SCH ×7 (02:45→22:35)
[2021-04-07] MEDS: MIDAZOLAM IN 0.9 % SOD.CHLORID 100 MG/100 ML PLAST..BAG IVPB SCH ×4 (04:40→22:36)
[2021-04-07] MEDS: FUROSEMIDE 40 MG/4 ML INJECTABLE VIAL IVPUSH SCH ×2 (05:51→14:32)
[2021-04-07 07:08] LABS: ALBUMIN 1.6 g/dl (3.4-5.0); BLOOD UREA NITROGEN 19.1 mg/dL (7-18); CALCIUM 8.2 mg/dL (8.5-10.1); MAGNESIUM 1.8 mg/dL (1.8-2.4)
[2021-04-07 07:10] LABS: CREATININE 0.7 mg/dL (0.55-1.3)
[2021-04-07 07:12] LABS: BILIRUBIN,TOTAL 0.5 mg/dL (0.2-1); PHOSPHOROUS 3.4 mg/dL (2.5-4.9); TOT PROT 5.8 g/dl (6.4-8.2)
[2021-04-07 07:46] LABS: HEMATOCRIT 21.9 % (35.4-49); HEMOGLOBIN 7.4 GM/dL (11.7-16.9); MCH 30.9 pg (25.7-33.7); MCHC 33.9 g/dl (32.0-35.9); MEAN CELL VOLUME 91.1 fl (80-96); MEAN PLT VOLUME 8.3 fl (7.5-11.1); PLATELET COUNT 404 10^3/uL (134-434); RBC 2.41 M/mm3 (4.00-5.60); RDW 15.2 % (11.9-15.9); WHITE BLOOD COUNT 8.4 K/mm3 (4.0-10.0)
[2021-04-07] MEDS ORDERED: POTASSIUM CHLORIDE 20 MEQ PREMIX IVPB 100 ML IVPB ONE (09:00)
[2021-04-07] MEDS: AMINO ACIDS/PROTEIN HYDROLYS 30 ML LIQUID.PKT PO SCH ×2 (09:03→17:43)
[2021-04-07] MEDS: ENOXAPARIN NA (PORCINE) 40 MG/0.4 ML DISP.SYRIN SQ SCH ×2 (09:05→22:27)
[2021-04-07] MEDS: PANTOPRAZOLE SODIUM 40 MG VIAL IVPUSH SCH (09:05)
[2021-04-07] MEDS ORDERED: PT OWN MED DRAWER 7, Y5N ONE ×2 (09:08→22:26)
[2021-04-07] MEDS: MULTIVIT-MINERALS ORAL LIQUID NGT SCH (09:09)
[2021-04-07] MEDS: VANCOMYCIN/WATER BAGS 1,250 MG/250 ML BAG IVPB SCH ×2 (09:09→22:27)
[2021-04-07] MEDS: VECURONIUM BROMIDE 100 MG/100 ML BAG IVPB SCH ×2 (12:00→13:15)
[2021-04-07] MEDS: POLYETHYLENE GLYCOL (HEALTHYLAX) 3350 17 GM PACKET PO SCH (12:48)
[2021-04-07 13:53] LABS: ANISOCYTOSIS 0; HELMET CELLS 0; HOWELL-JOLLY BODIES 0; MACROCYTOSIS 0; OVALOCYTE 0; PLATELET ESTIMATE NORMAL; ROULEAU 0; SICKELED CELLS 0; TARGET CELLS 0; TEAR DROP CELLS 0; TOXIC GRANULATION 0
[2021-04-07] MEDS: CHLORHEXIDINE GLUCONATE 4% CLEANSER FOR DECOLONIZATION TP SCH (22:25)
[2021-04-08] MEDS: FENTANYL NS IVPB 500 MCG/100 ML BAG IVPB SCH ×4 (00:13→21:00)
[2021-04-08] MEDS ORDERED: PIPERACILLIN/TAZOBACTAM 4.5 GM VIAL IVPB ONE ×2 (01:17→08:35)
[2021-04-08] MEDS ORDERED: DEXTROSE 5%-WATER 100 ML IVPB ONE ×2 (01:18→08:35)
[2021-04-08] MEDS: PIPERACILLIN/TAZOB 4.5 GM 4.5 GM in DEXTROSE 5%-WATER 100 ML IVPB SCH ×2 (01:23→09:30)
[2021-04-08] MEDS: PROPOFOL 1,000,000 MCG/100 ML VIAL IVPB SCH ×6 (01:58→22:00)
[2021-04-08] MEDS: VECURONIUM BROMIDE 100 MG/100 ML BAG IVPB SCH ×2 (05:30→21:36)
[2021-04-08] MEDS: FUROSEMIDE 40 MG/4 ML INJECTABLE VIAL IVPUSH SCH ×2 (05:30→15:00)
[2021-04-08 07:07] LABS: HEMATOCRIT 22.1 % (35.4-49); HEMOGLOBIN 7.6 GM/dL (11.7-16.9); MCH 31.8 pg (25.7-33.7); MCHC 34.5 g/dl (32.0-35.9); MEAN CELL VOLUME 92.2 fl (80-96); MEAN PLT VOLUME 8.4 fl (7.5-11.1); PLATELET COUNT 460 10^3/uL (134-434); RDW 15.3 % (11.9-15.9); WHITE BLOOD COUNT 9.5 K/mm3 (4.0-10.0)
[2021-04-08 07:37] LABS: CALCIUM 7.9 mg/dL (8.5-10.1)
[2021-04-08 07:39] LABS: ALBUMIN 1.6 g/dl (3.4-5.0); BLOOD UREA NITROGEN 19.9 mg/dL (7-18); MAGNESIUM 1.7 mg/dL (1.8-2.4)
[2021-04-08 07:41] LABS: BILIRUBIN,TOTAL 0.4 mg/dL (0.2-1); CREATININE 0.7 mg/dL (0.55-1.3)
[2021-04-08 07:44] LABS: TOT PROT 5.9 g/dl (6.4-8.2)
[2021-04-08] MEDS: AMINO ACIDS/PROTEIN HYDROLYS 30 ML LIQUID.PKT PO SCH ×2 (08:29→17:47)
[2021-04-08] MEDS ORDERED: PT OWN MED DRAWER 7, Y5N ONE (10:07)
[2021-04-08] MEDS: MULTIVIT-MINERALS ORAL LIQUID NGT SCH (10:08)
[2021-04-08] MEDS: POLYETHYLENE GLYCOL (HEALTHYLAX) 3350 17 GM PACKET PO SCH (10:08)
[2021-04-08] MEDS: PANTOPRAZOLE SODIUM 40 MG VIAL IVPUSH SCH (10:09)
[2021-04-08] MEDS: ENOXAPARIN NA (PORCINE) 40 MG/0.4 ML DISP.SYRIN SQ SCH ×2 (10:09→21:35)
[2021-04-08] MEDS: VANCOMYCIN/WATER BAGS 1,250 MG/250 ML BAG IVPB SCH (10:09)
[2021-04-08 10:59] LABS: ANISOCYTOSIS 1+; MACROCYTOSIS 1+; PLATELET ESTIMATE NORMAL
[2021-04-08 15:33] LABS: PHOSPHOROUS 3.3 mg/dL (2.5-4.9)
[2021-04-08 15:59] LABS: ARTERIAL BLD GAS O2 SATURATION 86.8 % (95-98); ARTERIAL BLOOD GAS BASE EXCESS 12.9 mmol/L (-2-2); ARTERIAL BLOOD GAS PO2 58.6 mmHg (80-100); ARTERIAL BLOOD GAS pH 7.325 (7.350-7.450)
[2021-04-08 16:00] LABS: ALLENS TEST POSITIVE; VENT MODE AC
[2021-04-08 16:01] LABS: VENT RATE 20
[2021-04-08] MEDS ORDERED: POTASSIUM CHLORIDE 20 MEQ PREMIX IVPB 100 ML IVPB ONE (17:02)
[2021-04-08] MEDS: MIDAZOLAM IN 0.9 % SOD.CHLORID 100 MG/100 ML PLAST..BAG IVPB SCH (18:24)
[2021-04-08] MEDS: CHLORHEXIDINE GLUCONATE 4% CLEANSER FOR DECOLONIZATION TP SCH (21:35)
[2021-04-09] MEDS: FENTANYL NS IVPB 500 MCG/100 ML BAG IVPB SCH ×3 (02:45→19:39)
[2021-04-09] MEDS: MIDAZOLAM IN 0.9 % SOD.CHLORID 100 MG/100 ML PLAST..BAG IVPB SCH ×2 (03:30→13:52)
[2021-04-09] MEDS: FUROSEMIDE 40 MG/4 ML INJECTABLE VIAL IVPUSH SCH ×2 (05:25→14:05)
[2021-04-09 06:10] LABS: ARTERIAL BLD GAS O2 SATURATION 85.3 % (95-98); ARTERIAL BLOOD GAS BASE EXCESS 14.2 mmol/L (-2-2); ARTERIAL BLOOD GAS PO2 60.1 mmHg (80-100); ARTERIAL BLOOD GAS pH 7.268 (7.350-7.450)
[2021-04-09 06:29] LABS: ALLENS TEST POSITIVE
[2021-04-09 06:30] LABS: VENT MODE A/C; VENT RATE 20
[2021-04-09 06:47] LABS: HEMATOCRIT 24.8 % (35.4-49); HEMOGLOBIN 8.6 GM/dL (11.7-16.9); MCH 32.1 pg (25.7-33.7); MCHC 34.8 g/dl (32.0-35.9); MEAN CELL VOLUME 92.2 fl (80-96); MEAN PLT VOLUME 8.4 fl (7.5-11.1); PLATELET COUNT 567 10^3/uL (134-434); RBC 2.69 M/mm3 (4.00-5.60); RDW 15.2 % (11.9-15.9)
[2021-04-09 07:09] LABS: BLOOD UREA NITROGEN 16.4 mg/dL (7-18)
[2021-04-09 07:11] LABS: CALCIUM 8.5 mg/dL (8.5-10.1)
[2021-04-09 07:12] LABS: ALBUMIN 1.8 g/dl (3.4-5.0); MAGNESIUM 1.6 mg/dL (1.8-2.4)
[2021-04-09 07:14] LABS: BILIRUBIN,TOTAL 0.6 mg/dL (0.2-1); CREATININE 0.6 mg/dL (0.55-1.3)
[2021-04-09 07:15] LABS: TOT PROT 6.7 g/dl (6.4-8.2)
[2021-04-09] MEDS ORDERED: PT OWN MED DRAWER 7, Y5N ONE (08:58)
[2021-04-09] MEDS: MULTIVIT-MINERALS ORAL LIQUID NGT SCH (09:00)
[2021-04-09] MEDS: PANTOPRAZOLE SODIUM 40 MG VIAL IVPUSH SCH (09:00)
[2021-04-09] MEDS: POLYETHYLENE GLYCOL (HEALTHYLAX) 3350 17 GM PACKET PO SCH (09:00)
[2021-04-09] MEDS: AMINO ACIDS/PROTEIN HYDROLYS 30 ML LIQUID.PKT PO SCH ×2 (09:00→17:28)
[2021-04-09] MEDS: PROPOFOL 1,000,000 MCG/100 ML VIAL IVPB SCH ×3 (09:38→17:34)
[2021-04-09] MEDS ORDERED: FENTANYL NS IVPB 500 MCG/100 ML BAG IVPB ONE ×2 (11:11→19:30)
[2021-04-09] MEDS ORDERED: MIDAZOLAM IN 0.9 % SOD.CHLORID 1 MG/1 ML PLAST..BAG ONE (11:12)
[2021-04-09] MEDS: CHLORHEXIDINE GLUCONATE 4% CLEANSER FOR DECOLONIZATION TP SCH (22:30)
[2021-04-10] MEDS: MIDAZOLAM IN 0.9 % SOD.CHLORID 100 MG/100 ML PLAST..BAG IVPB SCH ×3 (00:09→19:28)
[2021-04-10] MEDS: FENTANYL NS IVPB 500 MCG/100 ML BAG IVPB SCH ×4 (00:09→22:30)
[2021-04-10] MEDS: VECURONIUM BROMIDE 100 MG/100 ML BAG IVPB SCH (00:10)
[2021-04-10] MEDS: PROPOFOL 1,000,000 MCG/100 ML VIAL IVPB SCH ×6 (00:10→22:30)
[2021-04-10] MEDS: FUROSEMIDE 40 MG/4 ML INJECTABLE VIAL IVPUSH SCH ×2 (05:36→13:04)
[2021-04-10 05:40] LABS: ARTERIAL BLD GAS O2 SATURATION 84.4 % (95-98); ARTERIAL BLOOD GAS BASE EXCESS 15.7 mmol/L (-2-2); ARTERIAL BLOOD GAS PO2 51.7 mmHg (80-100); ARTERIAL BLOOD GAS pH 7.388 (7.350-7.450)
[2021-04-10 06:01] LABS: ALLENS TEST POSITIVE
[2021-04-10 06:02] LABS: VENT MODE A/C; VENT RATE 25
[2021-04-10 06:50] LABS: HEMATOCRIT 23.9 % (35.4-49); MCHC 33.5 g/dl (32.0-35.9); MEAN CELL VOLUME 92.5 fl (80-96); MEAN PLT VOLUME 8.3 fl (7.5-11.1); PLATELET COUNT 560 10^3/uL (134-434); RBC 2.58 M/mm3 (4.00-5.60); RDW 15.9 % (11.9-15.9); WHITE BLOOD COUNT 11.2 K/mm3 (4.0-10.0)
[2021-04-10 07:10] LABS: ALBUMIN 1.7 g/dl (3.4-5.0); BLOOD UREA NITROGEN 16.7 mg/dL (7-18); CALCIUM 9.1 mg/dL (8.5-10.1)
[2021-04-10 07:11] LABS: BILIRUBIN,TOTAL 0.4 mg/dL (0.2-1); MAGNESIUM 1.9 mg/dL (1.8-2.4); TOT PROT 6.3 g/dl (6.4-8.2)
[2021-04-10 07:13] LABS: CREATININE 0.6 mg/dL (0.55-1.3); PHOSPHOROUS 3.1 mg/dL (2.5-4.9)
[2021-04-10] MEDS: AMINO ACIDS/PROTEIN HYDROLYS 30 ML LIQUID.PKT PO SCH ×2 (09:03→16:42)
[2021-04-10] MEDS: PANTOPRAZOLE SODIUM 40 MG VIAL IVPUSH SCH (09:03)
[2021-04-10] MEDS: POLYETHYLENE GLYCOL (HEALTHYLAX) 3350 17 GM PACKET PO SCH (09:04)
[2021-04-10] MEDS: ENOXAPARIN NA (PORCINE) 40 MG/0.4 ML DISP.SYRIN SQ SCH (09:04)
[2021-04-10] MEDS: MULTIVIT-MINERALS ORAL LIQUID NGT SCH (09:04)
[2021-04-10] MEDS ORDERED: PT OWN MED DRAWER 7, Y5N ONE (09:06)
[2021-04-10 10:17] LABS: PLATELET ESTIMATE INCREASED; ROULEAU 1+; SMUDGE CELLS 2
[2021-04-10] MEDS ORDERED: dilTIAZem HCL 125 MG/25 ML - 25 ML VIAL ONE (12:05)
[2021-04-10] MEDS: dilTIAZem HCL 50 MG/10 ML - 10 ML VIAL IVPUSH PRN (12:06)
[2021-04-10] MEDS: ACETAMINOPHEN 1000 MG/100 ML VIAL IVPB PRN (18:00)
[2021-04-10] MEDS ORDERED: PIPERACILLIN/TAZOB 3.375 GM 3.375 GM in DEXTROSE 5%-WATER - 50 ML IVPB ONE (18:31)
[2021-04-10] MEDS ORDERED: VANCOMYCIN 1 GM in D5W (PRE-DOCKED) 1,000 MG/250 ML IVPB ONE (18:31)
[2021-04-10] MEDS ORDERED: PIPERACILLIN/TAZOBACTAM 3.375 GM VIAL IVPB ONE (19:29)
[2021-04-10] MEDS ORDERED: DEXTROSE 5%-WATER - 50 ML IVPB ONE (19:30)
[2021-04-10] MEDS: MEROPENEM 1 GM in DEXTROSE 5%-WATER 100 ML IVPB SCH (22:00)
[2021-04-10] MEDS ORDERED: MEROPENEM 1 GM VIAL (RESTRICTED TO ID) IVPB ONE (22:26)
[2021-04-10] MEDS ORDERED: DEXTROSE 5%-WATER 100 ML IVPB ONE (22:27)
[2021-04-10] MEDS: CHLORHEXIDINE GLUCONATE 4% CLEANSER FOR DECOLONIZATION TP SCH (22:36)
[2021-04-11] MEDS: VECURONIUM BROMIDE 100 MG/100 ML BAG IVPB SCH ×4 (01:45→22:33)
[2021-04-11] MEDS: PROPOFOL 1,000,000 MCG/100 ML VIAL IVPB SCH ×7 (02:00→21:54)
[2021-04-11] MEDS: MEROPENEM 1 GM in DEXTROSE 5%-WATER 100 ML IVPB SCH ×3 (02:40→17:29)
[2021-04-11] MEDS: FENTANYL NS IVPB 500 MCG/100 ML BAG IVPB SCH ×6 (03:05→22:34)
[2021-04-11] MEDS ORDERED: MEROPENEM 1 GM VIAL (RESTRICTED TO ID) IVPB ONE ×3 (03:08→17:19)
[2021-04-11] MEDS ORDERED: DEXTROSE 5%-WATER 100 ML IVPB ONE ×3 (03:08→17:19)
[2021-04-11] MEDS ORDERED: PT OWN MED DRAWER 7, Y5N ONE ×4 (06:04→18:28)
[2021-04-11] MEDS: FUROSEMIDE 40 MG/4 ML INJECTABLE VIAL IVPUSH SCH ×2 (06:07→15:36)
[2021-04-11] MEDS: MIDAZOLAM IN 0.9 % SOD.CHLORID 100 MG/100 ML PLAST..BAG IVPB SCH ×4 (06:07→22:34)
[2021-04-11 06:25] LABS: ARTERIAL BLOOD GAS BASE EXCESS 13.5 mmol/L (-2-2); ARTERIAL BLOOD GAS PO2 56.9 mmHg (80-100); ARTERIAL BLOOD GAS pH 7.265 (7.350-7.450)
[2021-04-11 06:27] LABS: ALLENS TEST POSITIVE; VENT MODE A/C; VENT RATE 18
[2021-04-11 06:53] LABS: EPI CELLS 29 /uL (0-25.1); HYALINE CASTS 44 /uL (0-3.1); URINE APPEARANCE CLOUDY; URINE BACTERIA 3 /uL (0-1359); URINE BILIRUBIN NEGATIVE (NEGATIVE); URINE COLOR YELLOW; URINE GLUCOSE (UA) NEGATIVE (NEGATIVE); URINE KETONE NEGATIVE (NEGATIVE); URINE LEUK ESTERASE NEGATIVE (NEGATIVE); URINE NITRITE NEGATIVE (NEGATIVE); URINE PROTEIN 2+ (NEGATIVE); URINE WBC 52 /uL (0-25.8)
[2021-04-11] MEDS: VANCOMYCIN/WATER BAGS 1,250 MG/250 ML BAG IVPB SCH ×2 (06:53→18:25)
[2021-04-11 07:11] LABS: HEMATOCRIT 24.9 % (35.4-49); HEMOGLOBIN 8.1 GM/dL (11.7-16.9); MCH 30.8 pg (25.7-33.7); MCHC 32.7 g/dl (32.0-35.9); MEAN CELL VOLUME 94.4 fl (80-96); PLATELET COUNT 562 10^3/uL (134-434); RBC 2.64 M/mm3 (4.00-5.60); RDW 15.8 % (11.9-15.9); WHITE BLOOD COUNT 14.2 K/mm3 (4.0-10.0)
[2021-04-11 07:36] LABS: CHLORIDE 100 mmol/L (98-107); SODIUM 146 mmol/L (136-145)
[2021-04-11 07:40] LABS: ALBUMIN 1.9 g/dl (3.4-5.0); BLOOD UREA NITROGEN 18.4 mg/dL (7-18); GLUCOSE,RANDOM 102 mg/dL (74-106); MAGNESIUM 2.2 mg/dL (1.8-2.4)
[2021-04-11 07:43] LABS: PHOSPHOROUS 3.5 mg/dL (2.5-4.9); SGOT/AST 62 U/L (15-37); SGPT/ALT 85 U/L (13-61)
[2021-04-11 07:45] LABS: BILIRUBIN,TOTAL 0.4 mg/dL (0.2-1); TOT PROT 6.3 g/dl (6.4-8.2)
[2021-04-11 07:46] LABS: ALK PHOS 161 U/L (45-117); CREATININE 0.5 mg/dL (0.55-1.3)
[2021-04-11 07:47] LABS: ANION GAP 1 MMOL/L (8-16); CO2 > 45 mmol/L (21-32)
[2021-04-11] MEDS: ENOXAPARIN NA (PORCINE) 40 MG/0.4 ML DISP.SYRIN SQ SCH (09:29)
[2021-04-11] MEDS: POLYETHYLENE GLYCOL (HEALTHYLAX) 3350 17 GM PACKET PO SCH (09:29)
[2021-04-11] MEDS: PANTOPRAZOLE SODIUM 40 MG VIAL IVPUSH SCH (09:30)
[2021-04-11] MEDS: AMINO ACIDS/PROTEIN HYDROLYS 30 ML LIQUID.PKT PO SCH ×2 (09:30→17:29)
[2021-04-11] MEDS: MULTIVIT-MINERALS ORAL LIQUID NGT SCH (09:30)
[2021-04-11 10:23] LABS: URINE RBC 112.3 /uL (0-23.9)
[2021-04-11 10:27] LABS: ANISOCYTOSIS 0; MACROCYTOSIS 0; PLATELET ESTIMATE INCREASED; TEAR DROP CELLS 1+
[2021-04-11] MEDS: ACETAMINOPHEN 1000 MG/100 ML VIAL IVPB PRN ×2 (15:45→22:32)
[2021-04-11] MEDS: CHLORHEXIDINE GLUCONATE 4% CLEANSER FOR DECOLONIZATION TP SCH (21:54)
[2021-04-12] MEDS: PROPOFOL 1,000,000 MCG/100 ML VIAL IVPB SCH ×3 (00:37→07:03)
[2021-04-12] MEDS ORDERED: DEXTROSE 5%-WATER 100 ML IVPB ONE ×2 (01:09→07:46)
[2021-04-12] MEDS ORDERED: MEROPENEM 1 GM VIAL (RESTRICTED TO ID) IVPB ONE ×2 (01:09→07:46)
[2021-04-12] MEDS: FENTANYL NS IVPB 500 MCG/100 ML BAG IVPB SCH ×2 (01:17→07:03)
[2021-04-12] MEDS: MEROPENEM 1 GM in DEXTROSE 5%-WATER 100 ML IVPB SCH (01:17)
[2021-04-12] MEDS ORDERED: PT OWN MED DRAWER 7, Y5N ONE (05:28)
[2021-04-12] MEDS: FUROSEMIDE 40 MG/4 ML INJECTABLE VIAL IVPUSH SCH (05:51)
[2021-04-12 06:11] VITALS: TEMP 100.8
[2021-04-12] MEDS ORDERED: NOREPINEPHRINE NS PREMIX 16,000 MCG/500 ML BAG IVPB ONE (06:25)
[2021-04-12] MEDS ORDERED: NOREPINEPHRINE BITARTRATE 16,000 MCG in SODIUM CHLORIDE 484 ML IV SCH (06:30)
[2021-04-12 08:35] VITALS: BP 66/47; PULSE 106
== END 2021-04-12 10:23 | disposition expired | DRG 870 ==
LOC: JER 17:37 → JERBED 18:32 → J8W 03-09 00:20 → J4W 03-12 14:58 → JICU 03-21 05:15
PROVIDERS: ADMIT Internal Medicine; ATTEND Internal Medicine Pulmonary Disease
PROC: XW033E5 Introduction of Remdesivir Anti-infective into Peripheral Vein, Percutaneous Approach, New Technology Group 5 (ICD-10-PCS; 2021-03-08)
PROC: 5A1955Z Respiratory Ventilation, Greater than 96 Consecutive Hours (ICD-10-PCS; principal; 2021-03-21)
PROC: 0BH17EZ Insertion of Endotracheal Airway into Trachea, Via Natural or Artificial Opening (ICD-10-PCS; 2021-03-21)
PROC: 05HN33Z Insertion of Infusion Device into Left Internal Jugular Vein, Percutaneous Approach (ICD-10-PCS; 2021-03-28)
PROC: B544ZZA Ultrasonography of Left Jugular Veins, Guidance (ICD-10-PCS; 2021-03-28)
PROC: 05HM33Z Insertion of Infusion Device into Right Internal Jugular Vein, Percutaneous Approach (ICD-10-PCS; 2021-04-04)
PROC: B543ZZA Ultrasonography of Right Jugular Veins, Guidance (ICD-10-PCS; 2021-04-04)
DX: A41.89 Other specified sepsis (principal); U07.1 COVID-19; J12.82 Pneumonia due to coronavirus disease 2019; J80 Acute respiratory distress syndrome; R65.21 Severe sepsis with septic shock; E87.0 Hyperosmolality and hypernatremia; I10 Essential (primary) hypertension; E78.5 Hyperlipidemia, unspecified; R07.89 Other chest pain; E87.6 Hypokalemia; E66.9 Obesity, unspecified; Z68.36 Body mass index [BMI] 36.0-36.9, adult; E87.70 Fluid overload, unspecified
CPT/HCPCS: 36415; 36600; 71045-TC-FY; 80048; 80053; 81003; 82248; 82550; 82728; 82803; 83605; 83615; 83735; 84100; 84484; 85025; 85027; 85379; 85610; 85651; 85730; 86140; 86480; 86704; 86705; 86706; 86707; 86803; 87040; 87070; 87086; 87205; 87340; 87350; 87389; 87517; 87804; 87899; 93005; 93010; 94002; 94660; 99285-25; C9399; C9803; J0131; J1100; J3490; U0003; U0005